=== PATIENT | male | born 1930 | race Caucasian/White ===

== ENCOUNTER 2016-07-28 21:24 | Inpatient (IN) | payer MEDICARE, OTHER ==
[~2016-07-28] VITALS: Ht 175.3 cm; Wt 87.2 kg
[2016-07-28] MEDS ORDERED: DOCU-27 PO (21:51)
[2016-07-28] MEDS ORDERED: ACET325T21 PO (21:51)
[2016-07-28] MEDS ORDERED: ACET160O49 PO (21:51)
[2016-07-28] MEDS ORDERED: TAMS0.4C2 PO (21:51)
[2016-07-28] MEDS ORDERED: FURO-69 PO (21:51)
[2016-07-28] MEDS ORDERED: PANT40TA3 PO (21:51)
[2016-07-28] MEDS ORDERED: MAGN400O4 PO (21:51)
[2016-07-28] MEDS ORDERED: ACET650S11 RC (21:51)
[2016-07-28] MEDS ORDERED: FLUT16SP NS (21:51)
[2016-07-28] MEDS ORDERED: VENL25TA PO (21:51)
[2016-07-28] MEDS ORDERED: CARV6.252 PO (21:51)
[2016-07-28] MEDS ORDERED: MAG360OR24 PO (21:52)
[2016-07-28] MEDS ORDERED: ALBU6.7H IH (21:55)
[2016-07-28] MEDS ORDERED: NA P RC (21:56)
[2016-07-28] MEDS ORDERED: EUCA50OI2 TP (21:58)
[2016-07-28] MEDS ORDERED: MINE454C6 TP (22:00)
[2016-07-28] MEDS ORDERED: CLOB15CR TP (22:03)
[2016-07-28] MEDS ORDERED: TRIA15CR2 TP (22:03)
[2016-07-28] MEDS ORDERED: DEXT15DR5 LEFTEYE (22:05)
--- NOTE | 2016-07-28 22:05 | PDOC ---
Exam Mando Demential Exam: Mando Note: Please also refer to the separate dictated note~for this date of service dictated separately.~Patient seen individually. Discussed the patient with Nursing staff reviewed the chart.~Reviewed interim history and current functioning. Reviewed vital signs,~Labs/ Radiology~and current medications noted below. Continue current treatment with the changes noted in the dictated addendum note Current Medications: Meds: Active Scripts Active Reported Triamcinolone Acetonide 15 Gm Cream..g. 1 Lyudmila TP BID Clobetasol Propionate 15 Gm Cream..g. 1 Lyudmila TP BID Hydrocerin Cream (Mineral Oil/Petrolatum,White) 454 Gm Cream..g. 1 Lyudmila TP QHS Vicks Vaporub Ointment (Eucalyptus Oil/Menthol/Camphor) 50 Gm Oint...g. 1 Lyudmila TP PRN PRN Ra Saline Enema (Na Phos,M-B/Na Phos,Di-Ba) 133 Ml Enema 133 Ml RC PRN Q24HRS PRN Proventil Hfa Inhaler (Albuterol Sulfate) 6.7 Gm Hfa.aer.ad 1 Puff IH PRN Q4HRS PRN Alum-Mag Hydroxide-Simeth Liq (Mag Hydrox/Al Hydrox/Simeth) 360 Ml Oral.susp 30 Ml PO PRN Q2HR PRN Milk Of Magnesia (Magnesium Hydroxide) 400 Mg/5 Ml Oral.susp 2,400 Mg PO PRN QHS PRN Fluticasone Propionate Nasal [place] (Fluticasone Propionate) 16 Gm [place].susp 2 [place] NS PRN DAILY PRN Colace (Docusate Sodium) 100 Mg Capsule 100 Mg PO PRN DAILY PRN Acetaminophen 325 Mg Tablet 650 Mg PO PRN Q4HRS PRN Acetaminophen Supp (Acetaminophen) 650 Mg Supp.rect 650 Mg RC PRN Q4HRS PRN Acetaminophen 160 Mg/5 Ml Oral.susp 650 Mg PO PRN Q4HRS PRN Tamsulosin Hcl 0.4 Mg Cap.er.24h 0.4 Mg PO BID Carvedilol 6.25 Mg Tablet 6.25 Mg PO BIDWMEALS Venlafaxine Hcl 25 Mg Tablet 25 Mg PO DAILY Protonix (Pantoprazole Sodium) 40 Mg Tablet.dr 40 Mg PO DAILY Lasix (Furosemide) 20 Mg Tablet 20 Mg PO DAILY SHANNON SIMMONS MD Jul 28, 2016 22:05
[2016-07-28] MEDS ORDERED: MICO90PO TP (22:06)
[2016-07-28] MEDS ORDERED: ACETAMINOPHEN 325 MG TABLET PO PRN (22:45)
[2016-07-28] MEDS ORDERED: METHYL SALICYLATE/MENTHOL TOPICAL OINTMENT 29GM TUBE. TP PRN (22:45)
[2016-07-28] MEDS ORDERED: MAG HYDROX/AL HYDROX/SIMETH 30 ML ORAL.SUSP PO PRN (22:45)
[2016-07-28] MEDS ORDERED: FLUTICASONE 50MCG/NASAL SPRAY 16GM BOTTLE. NS PRN (22:45)
[2016-07-28] MEDS ORDERED: OLANZAPINE ZYDIS 5 MG TAB.RAPDIS PO PRN (22:45)
[2016-07-28] MEDS ORDERED: MAGNESIUM HYDROXIDE 2,400 MG/30 ML ORAL.SUSP. PO PRN (22:45)
[2016-07-28 23:03] VITALS: BP 160/78
[2016-07-29 03:27] LABS: BILIRUBIN,URINE NEG (NEG); CLARITY,URINE CLEAR; COLOR,URINE YELLOW; GLUCOSE,URINE NEG (NEG); NITRITE,URINE NEG (NEG); UROBILINOGEN,URINE 0.2 mg/dL (0.2 mg/dL)
[2016-07-29 03:31] LABS: BACTERIA,URINE 0 /HPF (0-FEW); RBC,URINE 0 /HPF (0-2); WBC,URINE 0 /HPF (0-4)
[2016-07-29 06:00] VITALS: BP 160/85
[2016-07-29] MEDS ORDERED: EUCALYPTUS OIL TP PRN (06:30)
[2016-07-29] MEDS ORDERED: NON FORMULARY ITEM (Acetaminophen 650 MG) PO PRN (06:30)
[2016-07-29] MEDS ORDERED: ACETAMINOPHEN 650 MG SUPP.RECT. RC PRN (06:30)
[2016-07-29] MEDS ORDERED: DOCUSATE SODIUM 100 MG CAPSULE PO PRN (06:30)
[2016-07-29] MEDS ORDERED: MAGNESIUM HYDROXIDE 2,400 MG/30 ML ORAL.SUSP. PO PRN (06:30)
[2016-07-29] MEDS ORDERED: ACETAMINOPHEN 325 MG TABLET PO PRN (06:30)
[2016-07-29] MEDS ORDERED: CAMPHOR TP PRN (06:30)
[2016-07-29] MEDS ORDERED: ALBUTEROL SULFATE 8GM INHALER. IH PRN (06:30)
[2016-07-29] MEDS ORDERED: POLYVINYL ALCOHOL 1.4% OPHTH SOLUTION 15ML BOTTLE. OU PRN (06:30)
[2016-07-29] MEDS ORDERED: MENTHOL TP PRN (06:30)
[2016-07-29] MEDS ORDERED: MICONAZOLE NITRATE 2% TOPICAL POWDER 85GM JAR. TP PRN (06:30)
[2016-07-29 07:13] LABS: BASO # 0.1 x10^3/uL (0.0-0.2); BASO % 1 % (0-3); EOS # 0.3 x10^3/uL (0.0-0.7); EOS % 4 % (0-3); HEMATOCRIT 40.5 % (39.0-53.0); HEMOGLOBIN 13.4 g/dL (13.0-17.5); LYMPH # 1.1 x10^3/uL (1.0-4.8); LYMPH % 17 % (24-48); MEAN CORPUSCULAR HEMOGLOBIN 29 pg (25-35); MEAN CORPUSCULAR HGB CONC 33 g/dL (31-37); MEAN CORPUSCULAR VOLUME 88 fL (79-100); MONO # 0.6 x10^3/uL (0.0-1.1); MONO % 9 % (0-9); NEUT # 4.8 x10^3uL (1.8-7.7); NEUT % 70 % (31-73); PLATELET COUNT 131 x10^3/uL (140-400); RED BLOOD COUNT 4.59 x10^6/uL (4.30-5.70); RED CELL DISTRIBUTION WIDTH 14.7 % (11.5-14.5); WHITE BLOOD COUNT 6.9 x10^3/uL (4.0-11.0)
[2016-07-29] MEDS ORDERED: IPRATRPIUM/ALBUTEROL 0.5/2.5MG 3 ML NEBU. NEB PRN (07:30)
[2016-07-29 07:43] LABS: ALBUMIN 3.3 g/dL (3.4-5.0); ALBUMIN/GLOBULIN RATIO 0.8 (1.0-1.7); CALCIUM 8.9 mg/dL (8.5-10.1); CREATININE 1.7 mg/dL (0.7-1.3); GFR 38.4; TOTAL BILIRUBIN 0.3 mg/dL (0.2-1.0); TOTAL PROTEIN 7.2 g/dL (6.4-8.2)
[2016-07-29] MEDS ORDERED: CARVEDILOL 6.25 MG TABLET PO SCH (08:00)
[2016-07-29] MEDS: PANTOPRAZOLE 40 MG TABLET. PO SCH (08:31)
[2016-07-29] MEDS: CLOBETASOL 0.05% TP SCH ×2 (08:31→21:00)
[2016-07-29] MEDS: FUROSEMIDE 20 MG TABLET PO SCH (08:31)
[2016-07-29] MEDS: TAMSULOSIN 0.4 MG CAP.ER.24H. PO SCH ×2 (08:31→19:07)
[2016-07-29] MEDS ORDERED: VENLAFAXINE 50 MG TABLET. PO SCH (09:00)
[2016-07-29 09:57] LABS: IRON,SERUM 45 ug/dL (65-175)
[2016-07-29 09:58] LABS: THYROID STIM HORMONE (TSH) 4.644 uIU/mL (0.358-3.740)
[2016-07-29] MEDS: PRENATAL MULTIVITAMIN TABLET. PO SCH (11:51)
--- NOTE | 2016-07-29 12:16 | HP ---
ADMIT DATE: 07/29/2016 REASON FOR ADMISSION TO THE SENIOR BEHAVIORAL UNIT: This is an 85-year-old male, who came to the [facility] Emergency Room via [facility] [place]. The patient has been having problems at the nursing facility. The patient's in March and as of late the patient still desires to have sexual relations. There is no one that he has a relationship with however. He was on Effexor 25 twice a day and noted that he was unable to have an erection and this was discontinued and the patient developed severe depression. He was restarted on 50 mg a day from the b.i.d. dosing and had some improvement in his intractable crying, but started to lash out with staff members more with paranoia. There was a long note from 07/28/2016, where he has been threatening residents and staff. He particularly picks on one person at the unit. He also has proposition to the staff, not to have intercourse, but to with him and hug them etc. Feel appears that he is having some significant post- grief of his , which is understandable. PAST MEDICAL HISTORY: Hypertension, chronic kidney disease. He has a remote history of a DVT. Fasting glucose, aortic aneurysm, lower extremity edema, and blindness of the left eye. 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 Factor V Leiden deficiency, factor 8 deficiency, insomnia, psoriasis, adjustment disorder, and history of pulmonary embolism. PAST SURGICAL HISTORY: He had an appendectomy as he had acute appendicitis in 10/2015. MEDICATIONS: Reviewed and are available on the MAR. ALLERGIES: None. SOCIAL HISTORY: As stated, his in March. He has children, who involved in his care. 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 He is a of the [place] , although he was in the [facility] and not in the [employer]. He quit smoking in 1980. REVIEW OF SYSTEMS: The patient has no particular complaints. OBJECTIVE: VITAL SIGNS: Blood pressure 160/85, pulse 78, temperature 97.4, and pulse ox is 95% on room air. Height 69 inches, weight 192.5 pounds. GENERAL: Pleasant elderly 85-year-old, in no acute distress. HEENT: The right pupil is equal, round, and reactive to light. Extraocular muscles are intact. He has a left artificial eye. His hearing is intact. His nose was patent. His throat was clear. NECK: Supple, without adenopathy. LUNGS: Clear to auscultation. CARDIOVASCULAR: Regular rhythm and rate. ABDOMEN: Protuberant, nontender, no masses. EXTREMITIES: With a trace of edema with ANTIONETTE hose on. MUSCULOSKELETAL: His gait, he ambulates very well with a walker and he passes to get up and go test. NEUROLOGIC: No tremors noted and cranial nerves are intact except with relation to the left eye. MENTAL STATUS: The patient was calm and cooperative, but is somewhat paranoid. He understands why he is at the hospital. He feels that he has been misunderstood and there is some untruths. LABORATORY DATA: Platelet count 131,000. Chemistry: BUN 27, creatinine 1.7. TSH is 4.644, and iron is slightly low at 45. ASSESSMENT: 1. Neurocognitive impairment. 2. Purported sexual inappropriateness. 3. Recent loss of . 4. Grief reaction. 5. 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 6. Fall risk. 7. Hypertension. 8. Adjustment disorder. 9. Major depressive disorder. 10. Factor violation. 11. History of pulmonary embolism. 12. Iron deficiency. 13. Mild thrombocytopenia. We will monitor. PLAN: To treat his medical conditions and follow along with Dr. Morrison. Also, he had a CT of the head, which was negative. CT of the head on 07/28/2016. GRAY ZAPATA DO DR: KYAW/maciej JOB#: [id number] / [id number]
[2016-07-29 13:07] LABS: T3 TOTAL 87 ng/dL (71-180); THYROXINE 7.2 ug/dL (4.5-12.0)
[2016-07-29 15:59] VITALS: BP 151/76
[2016-07-29] MEDS: CARVEDILOL 6.25 MG TABLET PO SCH (20:02)
--- NOTE | 2016-07-29 21:06 | PDOC ---
Exam Mando Demential Exam: Mando Note: Please also refer to the separate dictated note~for this date of service dictated separately.~Patient seen individually. Discussed the patient with Nursing staff reviewed the chart.~Reviewed interim history and current functioning. Reviewed vital signs,~Labs/ Radiology~and current medications noted below. Continue current treatment with the changes noted in the dictated addendum note Assessment: Vital Signs: Vital Signs Date Time Temp Pulse Resp B/P Pulse Ox O2 Delivery O2 Flow Rate FiO2 07/29/16 20:02 70 147/85 07/29/16 15:59 97.5 24 96 Room Air I&O Intake and Output 07/29/16 07:00 Intake Total 0 ml Balance 0 ml Intake Oral 0 ml Labs: Laboratory Tests Test 07/29/16 03:00 07/29/16 06:51 Urine Collection Type Void Urine Color Yellow Urine Clarity Clear Urine pH 6.0 Urine Specific [place] 1.020 Urine Protein Neg (NEG-TRACE) Urine Glucose (UA) Negmg/dL (NEG) Urine Ketones (Stick) Negmg/dL (NEG) Urine Blood Neg (NEG) Urine Nitrite Neg (NEG) Urine Bilirubin Neg (NEG) Urine Urobilinogen Dipstick 0.2mg/dL (0.2 mg/dL) Urine Leukocyte Esterase Neg (NEG) Urine RBC 0/HPF (0-2) Urine WBC 0/HPF (0-4) Urine Squamous Epithelial Cells None/LPF Urine Bacteria 0/HPF (0-FEW) White Blood Count 6.9x10^3/uL (4.0-11.0) Red Blood Count 4.59x10^6/uL (4.30-5.70) Hemoglobin 13.4g/dL (13.0-17.5) Hematocrit 40.5% (39.0-53.0) Mean Corpuscular Volume 88fL (79-100) Mean Corpuscular Hemoglobin 29pg (25-35) Mean Corpuscular Hemoglobin Concent 33g/dL (31-37) Red Cell Distribution Width 14.7% (11.5-14.5) H Platelet Count 131x10^3/uL (140-400) L Neutrophils (%) (Auto) 70% (31-73) Lymphocytes (%) (Auto) 17% (24-48) L Monocytes (%) (Auto) 9% (0-9) Eosinophils (%) (Auto) 4% (0-3) H Basophils (%) (Auto) 1% (0-3) Neutrophils # (Auto) 4.8x10^3uL (1.8-7.7) Lymphocytes # (Auto) 1.1x10^3/uL (1.0-4.8) Monocytes # (Auto) 0.6x10^3/uL (0.0-1.1) Eosinophils # (Auto) 0.3x10^3/uL (0.0-0.7) Basophils # (Auto) 0.1x10^3/uL (0.0-0.2) Sodium Level 143mmol/L (136-145) Potassium Level 4.0mmol/L (3.5-5.1) Chloride Level 108mmol/L (98-107) H Carbon Dioxide Level 29mmol/L (21-32) Anion Gap 6 (6-14) Blood Urea Nitrogen 27mg/dL (8-26) H Creatinine 1.7mg/dL (0.7-1.3) H Estimated GFR (Cockcroft-Gault) 38.4 BUN/Creatinine Ratio 16 (6-20) Glucose Level 141mg/dL (70-99) H Calcium Level 8.9mg/dL (8.5-10.1) Magnesium Level 2.0mg/dL (1.8-2.4) Iron Level 45ug/dL (65-175) L Total Iron Binding Capacity 299ug/dL (250-450) Iron Saturation 15% (15-34) Total Bilirubin 0.3mg/dL (0.2-1.0) Aspartate Amino Transferase (AST) 12U/L (15-37) L Alanine Aminotransferase (ALT) 17U/L (16-63) Alkaline Phosphatase 76U/L (46-116) Total Protein 7.2g/dL (6.4-8.2) Albumin 3.3g/dL (3.4-5.0) L Albumin/Globulin Ratio 0.8 (1.0-1.7) L Triglycerides Level 68mg/dL (0-150) Cholesterol Level 191mg/dL (0-200) LDL Cholesterol, Calculated 129mg/dL (0-100) H VLDL Cholesterol, Calculated 13mg/dL (0-40) HDL Cholesterol 49mg/dL (40-60) Cholesterol/HDL Ratio 3.0 25-Hydroxy Vitamin D Total Pending Thyroid Stimulating Hormone (TSH) 4.644uIU/mL (0.358-3.740) Thyroxine (T4) 7.2ug/dL (4.5-12.0) Total Triiodothyronine (TT3) 87ng/dL (71-180) RPR Titer Additional Testing Pending Current Medications: Meds: Current Medications Acetaminophen (Tylenol) 650 mg PRN Q6HRS PRN PO PAIN / TEMP; Start 07/28/16 at 22:45; Stop 07/29/16 at 06:32; Status DC Multi-Ingredient Ointment (Analgesic [place]) 1 lyudmila PRN QID PRN TP MUSCLE PAIN; Start 07/28/16 at 22:45 Al Hydroxide/Mg Hydroxide (Mylanta Plus Xs) 15 ml PRN AFTMEALHC PRN PO DYSPEPSIA; Start 07/28/16 at 22:45; Stop 07/29/16 at 06:32; Status DC Magnesium Hydroxide (Milk Of Magnesia) 2,400 mg PRN QHS PRN PO CONSTIPATION; Start 07/28/16 at 22:45; Stop 07/29/16 at 06:32; Status DC Venlafaxine HCl (Effexor) 25 mg DAILY PO Depression Last administered on t 08:31; Start 07/29/16 at 09:00; Stop 07/29/16 at 18:31; Status DC Fluticasone Propionate (Flonase) 2 spray PRN DAILY PRN NS Nasal Congestion; Start 07/28/16 at 22:45 Olanzapine (Zyprexa Zydis) 1.25 mg PRN Q2HR PRN PO Psych; Start 07/28/16 at 22: 45 Acetaminophen (Tylenol) 650 mg PRN Q4HRS PRN PO PAIN / TEMP; Start 07/29/16 at 06:30 Acetaminophen (Tylenol) 650 mg PRN Q4HRS PRN RC PAIN / TEMP; Start 07/29/16 at 06:30 Albuterol Sulfate (Ventolin Hfa) 1 puff PRN Q4HRS PRN IH Dyspnea; Start at 06:30; Stop 07/29/16 at 07:22; Status DC Carvedilol (Coreg) 6.25 mg BIDWMEALS PO Last administered on 07/29/16 08:31; Start 07/29/16 at 08:00; Stop 07/29/16 at 10:49; Status DC Clobetasol Propionate (Temovate) 1 lyudmila BID TP Last administered on 07/29/16 08: 31; Start 07/29/16 at 09:00 Docusate Sodium (Colace) 100 mg PRN DAILY PRN PO CONSTIPATION; Start 07/29/16 at 06:30 Furosemide (Lasix) 20 mg DAILY PO Last administered on 07/29/16 08:31; Start at 09:00 Magnesium Hydroxide (Milk Of Magnesia) 2,400 mg PRN QHS PRN PO CONSTIPATION; Start 07/29/16 at 06:30 Miconazole Nitrate (Desenex) 1 lyudmila PRN DAILY PRN TP ITCHING; Start 07/29/16 at 06:30; Stop 07/29/16 at 07:20; Status DC Multi-Ingred Cream/Lotion/Oil/ Oint (Hydrocerin) 1 lyudmila QHS TP ; Start 07/29/16 at 21:00 Pantoprazole Sodium (Protonix) 40 mg DAILYAC PO Last administered on 07/29/16 08:31; Start 07/29/16 at 07:30 Tamsulosin HCl (Flomax) 0.4 mg BID PO Last administered on 07/29/16 19:07; Start 07/29/16 at 09:00 Non-Formulary Medication 650 mg PRN Q4HRS PRN PO PAIN / TEMP; Start 07/29/16 at 06:30; Status UNV Artificial Tears (Artificial Tears) 2 drop PRN Q2HR PRN OU Artificial Eye Dryness; Start 07/29/16 at 06:30 Non-Formulary Medication 1 lyudmila PRN PRN TP CONGESTION; Start 07/29/16 at 06:30; Stop 07/29/16 at 07:24; Status DC Miconazole Nitrate (Monistat-Derm) 1 lyudmila PRN DAILY PRN TP ITCHING; Start at 07:30 Albuterol/ Ipratropium (Duoneb) 3 ml PRN Q4HRS PRN NEB SHORTNESS OF BREATH; Start 07/29/16 at 07:30 Carvedilol (Coreg) 6.25 mg Q12HR PO Last administered on 07/29/16 20:02; Start 07/29/16 at 21:00 Prenat Multivit/ Punch Operator/Iron/Folic Ac (Multivitamin ) 1 tab DAILYWLUN PO Last administered on 07/29/16 11:51; Start 07/29/16 at 12:00 Bupropion HCl (Wellbutrin Xl) 150 mg DAILY PO ; Start 07/30/16 at 09:00 Active Scripts Active Reported Lotrimin Af (Miconazole Nitrate) 90 Gm Powder 1 Lyud[place]ila TP PRN PRN Artificial Tears Eye Drops (Dextran 70/Hypromellose) 15 Ml Drops 2 Drop LEFTEYE PRN Q2HR PRN Triamcinolone Acetonide 15 Gm Cream..g. 1 Lyudmila TP BID Clobetasol Propionate 15 Gm Cream..g. 1 Lyudmila TP BID Hydrocerin Cream (Mineral Oil/Petrolatum,White) 454 Gm Cream..g. 1 Lyudmila TP QHS Vicks Vaporub Ointment (Eucalyptus Oil/Menthol/Camphor) 50 Gm Oint...g. 1 Lyudmila TP PRN PRN Ra Saline Enema (Na Phos,M-B/Na Phos,Di-Ba) 133 Ml Enema 133 Ml RC PRN Q24HRS PRN Proventil Hfa Inhaler (Albuterol Sulfate) 6.7 Gm Hfa.aer.ad 1 Puff IH PRN Q4HRS PRN Alum-Mag Hydroxide-Simeth Liq (Mag Hydrox/Al Hydrox/Simeth) 360 Ml Oral.susp 30 Ml PO PRN Q2HR PRN Milk Of Magnesia (Magnesium Hydroxide) 400 Mg/5 Ml Oral.susp 2,400 Mg PO PRN QHS PRN Fluticasone Propionate Nasal [place] (Fluticasone Propionate) 16 Gm [place].susp 2 [place] NS PRN DAILY PRN Colace (Docusate Sodium) 100 Mg Capsule 100 Mg PO PRN DAILY PRN Acetaminophen 325 Mg Tablet 650 Mg PO PRN Q4HRS PRN Acetaminophen Supp (Acetaminophen) 650 Mg Supp.rect 650 Mg RC PRN Q4HRS PRN Acetaminophen 160 Mg/5 Ml Oral.susp 650 Mg PO PRN Q4HRS PRN Tamsulosin Hcl 0.4 Mg Cap.er.24h 0.4 Mg PO BID Carvedilol 6.25 Mg Tablet 6.25 Mg PO BIDWMEALS Venlafaxine Hcl 25 Mg Tablet 25 Mg PO DAILY Protonix (Pantoprazole Sodium) 40 Mg Tablet.dr 40 Mg PO DAILY Lasix (Furosemide) 20 Mg Tablet 20 Mg PO DAILY SHANNON SIMMONS MD Jul 29, 2016 21:06
[2016-07-29] MEDS: MINERAL OIL/PETROLATUM TOPICAL CREAM 113GM JAR. TP SCH (21:10)
[2016-07-29 22:09] LABS: RPR REFLEX Non Reactive (Non Reactive)
[2016-07-30 06:01] VITALS: BP 146/76
[2016-07-30] MEDS: PANTOPRAZOLE 40 MG TABLET. PO SCH (07:53)
[2016-07-30] MEDS: TAMSULOSIN 0.4 MG CAP.ER.24H. PO SCH ×2 (07:54→19:10)
[2016-07-30] MEDS: CARVEDILOL 6.25 MG TABLET PO SCH ×2 (07:54→19:10)
[2016-07-30] MEDS: FUROSEMIDE 20 MG TABLET PO SCH (07:55)
[2016-07-30] MEDS: buPROPion XL 150 MG TAB.ER.24H PO SCH (07:59)
[2016-07-30] MEDS: CLOBETASOL 0.05% TP SCH ×2 (09:00→19:11)
[2016-07-30] MEDS: PRENATAL MULTIVITAMIN TABLET. PO SCH (11:33)
[2016-07-30 15:30] VITALS: BP 145/81
[2016-07-30] MEDS: MINERAL OIL/PETROLATUM TOPICAL CREAM 113GM JAR. TP SCH (19:09)
--- NOTE | 2016-07-30 21:03 | PDOC ---
Exam Mando Demential Exam: Mando Note: Please also refer to the separate dictated note~for this date of service dictated separately.~Patient seen individually. Discussed the patient with Nursing staff reviewed the chart.~Reviewed interim history and current functioning. Reviewed vital signs,~Labs/ Radiology~and current medications noted below. Continue current treatment with the changes noted in the dictated addendum note Assessment: Vital Signs: Vital Signs Date Time Temp Pulse Resp B/P Pulse Ox O2 Delivery O2 Flow Rate FiO2 07/30/16 19:10 73 145/81 07/30/16 15:30 97.5 18 96 Nasal Cannula 2.0 I&O Intake and Output 07/30/16 07:00 Intake Total 1080 ml Balance 1080 ml Intake Oral 1080 ml # Voids 3 Current Medications: Meds: Current Medications Acetaminophen (Tylenol) 650 mg PRN Q6HRS PRN PO PAIN / TEMP; Start 07/28/16 at 22:45; Stop 07/29/16 at 06:32; Status DC Multi-Ingredient Ointment (Analgesic [place]) 1 lyudmila PRN QID PRN TP MUSCLE PAIN; Start 07/28/16 at 22:45 Al Hydroxide/Mg Hydroxide (Mylanta Plus Xs) 15 ml PRN AFTMEALHC PRN PO DYSPEPSIA; Start 07/28/16 at 22:45; Stop 07/29/16 at 06:32; Status DC Magnesium Hydroxide (Milk Of Magnesia) 2,400 mg PRN QHS PRN PO CONSTIPATION; Start 07/28/16 at 22:45; Stop 07/29/16 at 06:32; Status DC Venlafaxine HCl (Effexor) 25 mg DAILY PO Depression Last administered on t 08:31; Start 07/29/16 at 09:00; Stop 07/29/16 at 18:31; Status DC Fluticasone Propionate (Flonase) 2 spray PRN DAILY PRN NS Nasal Congestion; Start 07/28/16 at 22:45 Olanzapine (Zyprexa Zydis) 1.25 mg PRN Q2HR PRN PO Psych; Start 07/28/16 at 22: 45 Acetaminophen (Tylenol) 650 mg PRN Q4HRS PRN PO PAIN / TEMP; Start 07/29/16 at 06:30 Acetaminophen (Tylenol) 650 mg PRN Q4HRS PRN RC PAIN / TEMP; Start 07/29/16 at 06:30 Albuterol Sulfate (Ventolin Hfa) 1 puff PRN Q4HRS PRN IH Dyspnea; Start at 06:30; Stop 07/29/16 at 07:22; Status DC Carvedilol (Coreg) 6.25 mg BIDWMEALS PO Last administered on 07/29/16 08:31; Start 07/29/16 at 08:00; Stop 07/29/16 at 10:49; Status DC Clobetasol Propionate (Temovate) 1 lyudmila BID TP Last administered on 07/30/16 19 :11; Start 07/29/16 at 09:00 Docusate Sodium (Colace) 100 mg PRN DAILY PRN PO CONSTIPATION; Start 07/29/16 at 06:30 Furosemide (Lasix) 20 mg DAILY PO Last administered on 07/30/16 07:55; Start 07/29/16 at 09:00 Magnesium Hydroxide (Milk Of Magnesia) 2,400 mg PRN QHS PRN PO CONSTIPATION; Start 07/29/16 at 06:30 Miconazole Nitrate (Desenex) 1 lyudmila PRN DAILY PRN TP ITCHING; Start 07/29/16 at 06:30; Stop 07/29/16 at 07:20; Status DC Multi-Ingred Cream/Lotion/Oil/ Oint (Hydrocerin) 1 lyudmila QHS TP Last administered on 07/30/16 19:09; Start 07/29/16 at 21:00 Pantoprazole Sodium (Protonix) 40 mg DAILYAC PO Last administered on 07/30/16 07:53; Start 07/29/16 at 07:30 Tamsulosin HCl (Flomax) 0.4 mg BID PO Last administered on 07/30/16 19:10; Start 07/29/16 at 09:00 Non-Formulary Medication 650 mg PRN Q4HRS PRN PO PAIN / TEMP; Start 07/29/16 at 06:30; Status UNV Artificial Tears (Artificial Tears) 2 drop PRN Q2HR PRN OU Artificial Eye Dryness; Start 07/29/16 at 06:30 Non-Formulary Medication 1 lyudmila PRN PRN TP CONGESTION; Start 07/29/16 at 06:30; Stop 07/29/16 at 07:24; Status DC Miconazole Nitrate (Monistat-Derm) 1 lyudmila PRN DAILY PRN TP ITCHING; Start at 07:30 Albuterol/ Ipratropium (Duoneb) 3 ml PRN Q4HRS PRN NEB SHORTNESS OF BREATH; Start 07/29/16 at 07:30 Carvedilol (Coreg) 6.25 mg Q12HR PO Last administered on 07/30/16 19:10; Start 07/29/16 at 21:00 Prenat Multivit/ Regular Senior Care Provider/Iron/Folic Ac (Multivitamin ) 1 tab DAILYWLUN PO Last administered on 07/30/16 11:33; Start 07/29/16 at 12:00 Bupropion HCl (Wellbutrin Xl) 150 mg DAILY PO Last administered on 07/30/16 07 :59; Start 07/30/16 at 09:00 Active Scripts Active Reported Lotrimin Af (Miconazole Nitrate) 90 Gm Powder 1 [place] TP PRN PRN Artificial Tears Eye Drops (Dextran 70/Hypromellose) 15 Ml Drops 2 Drop LEFTEYE PRN Q2HR PRN Triamcinolone Acetonide 15 Gm Cream..g. 1 Lyudmila TP BID Clobetasol Propionate 15 Gm Cream..g. 1 Lyudmila TP BID Hydrocerin Cream (Mineral Oil/Petrolatum,White) 454 Gm Cream..g. 1 Lyudmila TP QHS Vicks Vaporub Ointment (Eucalyptus Oil/Menthol/Camphor) 50 Gm Oint...g. 1 Lyudmila TP PRN PRN Ra Saline Enema (Na Phos,M-B/Na Phos,Di-Ba) 133 Ml Enema 133 Ml RC PRN Q24HRS PRN Proventil Hfa Inhaler (Albuterol Sulfate) 6.7 Gm Hfa.aer.ad 1 Puff IH PRN Q4HRS PRN Alum-Mag Hydroxide-Simeth Liq (Mag Hydrox/Al Hydrox/Simeth) 360 Ml Oral.susp 30 Ml PO PRN Q2HR PRN Milk Of Magnesia (Magnesium Hydroxide) 400 Mg/5 Ml Oral.susp 2,400 Mg PO PRN QHS PRN Fluticasone Propionate Nasal [place] (Fluticasone Propionate) 16 Gm [place].susp 2 [place] NS PRN DAILY PRN Colace (Docusate Sodium) 100 Mg Capsule 100 Mg PO PRN DAILY PRN Acetaminophen 325 Mg Tablet 650 Mg PO PRN Q4HRS PRN Acetaminophen Supp (Acetaminophen) 650 Mg Supp.rect 650 Mg RC PRN Q4HRS PRN Acetaminophen 160 Mg/5 Ml Oral.susp 650 Mg PO PRN Q4HRS PRN Tamsulosin Hcl 0.4 Mg Cap.er.24h 0.4 Mg PO BID Carvedilol 6.25 Mg Tablet 6.25 Mg PO BIDWMEALS Venlafaxine Hcl 25 Mg Tablet 25 Mg PO DAILY Protonix (Pantoprazole Sodium) 40 Mg Tablet.dr 40 Mg PO DAILY Lasix (Furosemide) 20 Mg Tablet 20 Mg PO DAILY SHANNON SIMMONS MD Jul 30, 2016 21:03
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
[2016-07-31 01:07] LABS: VITAMIN D25(OH)TOTAL 26.1 ng/mL (30.0-100.0)
[2016-07-31 06:21] VITALS: BP 120/57
[2016-07-31 07:12] LABS: HEMOGLOBIN A1C 5.6 % (4.8-5.6)
[2016-07-31] MEDS: PANTOPRAZOLE 40 MG TABLET. PO SCH (07:35)
[2016-07-31] MEDS: CARVEDILOL 6.25 MG TABLET PO SCH ×2 (07:35→19:33)
[2016-07-31] MEDS: buPROPion XL 150 MG TAB.ER.24H PO SCH (07:36)
[2016-07-31] MEDS: FUROSEMIDE 20 MG TABLET PO SCH (07:36)
[2016-07-31] MEDS: TAMSULOSIN 0.4 MG CAP.ER.24H. PO SCH ×2 (07:36→19:33)
[2016-07-31] MEDS: CLOBETASOL 0.05% TP SCH ×2 (07:37→19:34)
[2016-07-31] MEDS: PRENATAL MULTIVITAMIN TABLET. PO SCH (11:31)
[2016-07-31 15:45] VITALS: BP 134/72
[2016-07-31] MEDS: MINERAL OIL/PETROLATUM TOPICAL CREAM 113GM JAR. TP SCH (19:34)
--- NOTE | 2016-07-31 21:05 | PDOC ---
Exam Mando Demential Exam: Mando Note: Please also refer to the separate dictated note~for this date of service dictated separately.~Patient seen individually. Discussed the patient with Nursing staff reviewed the chart.~Reviewed interim history and current functioning. Reviewed vital signs,~Labs/ Radiology~and current medications noted below. Continue current treatment with the changes noted in the dictated addendum note Assessment: Vital Signs: Vital Signs Date Time Temp Pulse Resp B/P Pulse Ox O2 Delivery O2 Flow Rate FiO2 07/31/16 19:33 69 134/72 07/31/16 15:45 97.2 18 97 07/31/16 06:21 Room Air 07/30/16 15:30 2.0 I&O Intake and Output 07/31/16 07:00 Intake Total 1440 ml Balance 1440 ml Intake Oral 1440 ml Current Medications: Meds: Current Medications Acetaminophen (Tylenol) 650 mg PRN Q6HRS PRN PO PAIN / TEMP; Start 07/28/16 at 22:45; Stop 07/29/16 at 06:32; Status DC Multi-Ingredient Ointment (Analgesic [place]) 1 lyudmila PRN QID PRN TP MUSCLE PAIN; Start 07/28/16 at 22:45 Al Hydroxide/Mg Hydroxide (Mylanta Plus Xs) 15 ml PRN AFTMEALHC PRN PO DYSPEPSIA; Start 07/28/16 at 22:45; Stop 07/29/16 at 06:32; Status DC Magnesium Hydroxide (Milk Of Magnesia) 2,400 mg PRN QHS PRN PO CONSTIPATION; Start 07/28/16 at 22:45; Stop 07/29/16 at 06:32; Status DC Venlafaxine HCl (Effexor) 25 mg DAILY PO Depression Last administered on t 08:31; Start 07/29/16 at 09:00; Stop 07/29/16 at 18:31; Status DC Fluticasone Propionate (Flonase) 2 spray PRN DAILY PRN NS Nasal Congestion; Start 07/28/16 at 22:45 Olanzapine (Zyprexa Zydis) 1.25 mg PRN Q2HR PRN PO Psych; Start 07/28/16 at 22: 45 Acetaminophen (Tylenol) 650 mg PRN Q4HRS PRN PO PAIN / TEMP; Start 07/29/16 at 06:30 Acetaminophen (Tylenol) 650 mg PRN Q4HRS PRN RC PAIN / TEMP; Start 07/29/16 at 06:30 Albuterol Sulfate (Ventolin Hfa) 1 puff PRN Q4HRS PRN IH Dyspnea; Start at 06:30; Stop 07/29/16 at 07:22; Status DC Carvedilol (Coreg) 6.25 mg BIDWMEALS PO Last administered on 07/29/16 08:31; Start 07/29/16 at 08:00; Stop 07/29/16 at 10:49; Status DC Clobetasol Propionate (Temovate) 1 lyudmila BID TP Last administered on 07/31/16 19 :34; Start 07/29/16 at 09:00 Docusate Sodium (Colace) 100 mg PRN DAILY PRN PO CONSTIPATION; Start 07/29/16 at 06:30 Furosemide (Lasix) 20 mg DAILY PO Last administered on 07/31/16 07:36; Start 07/29/16 at 09:00 Magnesium Hydroxide (Milk Of Magnesia) 2,400 mg PRN QHS PRN PO CONSTIPATION; Start 07/29/16 at 06:30 Miconazole Nitrate (Desenex) 1 lyudmila PRN DAILY PRN TP ITCHING; Start 07/29/16 at 06:30; Stop 07/29/16 at 07:20; Status DC Multi-Ingred Cream/Lotion/Oil/ Oint (Hydrocerin) 1 lyudmila QHS TP Last administered on 07/31/16 19:34; Start 07/29/16 at 21:00 Pantoprazole Sodium (Protonix) 40 mg DAILYAC PO Last administered on 07/31/16 07:35; Start 07/29/16 at 07:30 Tamsulosin HCl (Flomax) 0.4 mg BID PO Last administered on 07/31/16 19:33; Start 07/29/16 at 09:00 Non-Formulary Medication 650 mg PRN Q4HRS PRN PO PAIN / TEMP; Start 07/29/16 at 06:30; Status UNV Artificial Tears (Artificial Tears) 2 drop PRN Q2HR PRN OU Artificial Eye Dryness; Start 07/29/16 at 06:30 Non-Formulary Medication 1 lyudmila PRN PRN TP CONGESTION; Start 07/29/16 at 06:30; Stop 07/29/16 at 07:24; Status DC Miconazole Nitrate (Monistat-Derm) 1 lyudmila PRN DAILY PRN TP ITCHING; Start at 07:30 Albuterol/ Ipratropium (Duoneb) 3 ml PRN Q4HRS PRN NEB SHORTNESS OF BREATH; Start 07/29/16 at 07:30 Carvedilol (Coreg) 6.25 mg Q12HR PO Last administered on 07/31/16 19:33; Start 07/29/16 at 21:00 Prenat Multivit/ [place]/Iron/Folic Ac (Multivitamin ) 1 tab DAILYWLUN PO Last administered on 07/31/16 11:31; Start 07/29/16 at 12:00 Bupropion HCl (Wellbutrin Xl) 150 mg DAILY PO Last administered on 07/31/16 07 :36; Start 07/30/16 at 09:00 Active Scripts Active Reported Lotrimin Af (Miconazole Nitrate) 90 Gm Powder 1 Lyudmila TP PRN PRN Artificial Tears Eye Drops (Dextran 70/Hypromellose) 15 Ml Drops 2 Drop LEFTEYE PRN Q2HR PRN Triamcinolone Acetonide 15 Gm Cream..g. 1 Lyudmila TP BID Clobetasol Propionate 15 Gm Cream..g. 1 Lyudmila TP BID Hydrocerin Cream (Mineral Oil/Petrolatum,White) 454 Gm Cream..g. 1 Lyudmila TP QHS Vicks Vaporub Ointment (Eucalyptus Oil/Menthol/Camphor) 50 Gm Oint...g. 1 Lyudmila TP PRN PRN Ra Saline Enema (Na Phos,M-B/Na Phos,Di-Ba) 133 Ml Enema 133 Ml RC PRN Q24HRS PRN Proventil Hfa Inhaler (Albuterol Sulfate) 6.7 Gm Hfa.aer.ad 1 Puff IH PRN Q4HRS PRN Alum-Mag Hydroxide-Simeth Liq (Mag Hydrox/Al Hydrox/Simeth) 360 Ml Oral.susp 30 Ml PO PRN Q2HR PRN Milk Of Magnesia (Magnesium Hydroxide) 400 Mg/5 Ml Oral.susp 2,400 Mg PO PRN QHS PRN Fluticasone Propionate Nasal [place] (Fluticasone Propionate) 16 Gm [place].susp 2 [place] NS PRN DAILY PRN Colace (Docusate Sodium) 100 Mg Capsule 100 Mg PO PRN DAILY PRN Acetaminophen 325 Mg Tablet 650 Mg PO PRN Q4HRS PRN Acetaminophen Supp (Acetaminophen) 650 Mg Supp.rect 650 Mg RC PRN Q4HRS PRN Acetaminophen 160 Mg/5 Ml Oral.susp 650 Mg PO PRN Q4HRS PRN Tamsulosin Hcl 0.4 Mg Cap.er.24h 0.4 Mg PO BID Carvedilol 6.25 Mg Tablet 6.25 Mg PO BIDWMEALS Venlafaxine Hcl 25 Mg Tablet 25 Mg PO DAILY Protonix (Pantoprazole Sodium) 40 Mg Tablet.dr 40 Mg PO DAILY Lasix (Furosemide) 20 Mg Tablet 20 Mg PO DAILY SHANNON SIMMONS MD Jul 31, 2016 21:04
--- NOTE | 2016-08-01 04:30 | PN ---
DATE: 07/30/2016 This late entry for 07/30/2016 covers elements not covered in my initial note. SUBJECTIVE: Per nursing report, the patient has been walking on his own, quite interactive, still depressed. No sexual aggression noted. Slept 7-1/2 hours. REVIEW OF SYSTEMS: No CV, , pulmonary, eye, ENT system symptoms on review. MENTAL STATUS EXAMINATION: Reasonably oriented. Speech has some latency, low in volume, coherent, abstraction fair, computation impaired. Language function intact. Mood and affect still somewhat dysphoric, withdrawn at times. No active suicidal or homicidal ideation. LABORATORY DATA: Reviewed. ASSESSMENT: Major depressive disorder, recurrent, rule out psychotic features; anxiety disorder, unspecified; impulse control disorder, unspecified. PLAN: The patient has been started on Wellbutrin-XL 150 mg a day for his depression in place of the Effexor. Maintain the rest of the psychotropics and adjust as indicated. SHANNON SIMMONS MD DR: MERCEDES/maciej JOB#: [id number] / [id number]
[2016-08-01 05:16] VITALS: BP 142/78
[2016-08-01] MEDS: FUROSEMIDE 20 MG TABLET PO SCH (08:20)
[2016-08-01] MEDS: PANTOPRAZOLE 40 MG TABLET. PO SCH (08:20)
[2016-08-01] MEDS: CARVEDILOL 6.25 MG TABLET PO SCH ×2 (08:20→19:20)
[2016-08-01] MEDS: TAMSULOSIN 0.4 MG CAP.ER.24H. PO SCH ×2 (08:21→19:19)
[2016-08-01] MEDS: buPROPion XL 150 MG TAB.ER.24H PO SCH (08:21)
[2016-08-01] MEDS: CLOBETASOL 0.05% TP SCH ×2 (08:22→19:20)
[2016-08-01] MEDS: PRENATAL MULTIVITAMIN TABLET. PO SCH (11:59)
[2016-08-01 15:41] VITALS: BP 129/70
[2016-08-01] MEDS: MINERAL OIL/PETROLATUM TOPICAL CREAM 113GM JAR. TP SCH (19:20)
--- NOTE | 2016-08-01 21:08 | PDOC ---
Exam Mando Demential Exam: Mando Note: Please also refer to the separate dictated note~for this date of service dictated separately.~Patient seen individually. Discussed the patient with Nursing staff reviewed the chart.~Reviewed interim history and current functioning. Reviewed vital signs,~Labs/ Radiology~and current medications noted below. Continue current treatment with the changes noted in the dictated addendum note Assessment: Vital Signs: Vital Signs Date Time Temp Pulse Resp B/P Pulse Ox O2 Delivery O2 Flow Rate FiO2 08/01/16 19:20 81 129/70 08/01/16 15:41 98.0 93 08/01/16 05:16 18 07/31/16 06:21 Room Air 07/30/16 15:30 2.0 I&O Intake and Output 08/01/16 07:00 Intake Total 1420 ml Balance 1420 ml Intake Oral 1420 ml # Voids 3 # Bowel Movements 1 Current Medications: Meds: Current Medications Acetaminophen (Tylenol) 650 mg PRN Q6HRS PRN PO PAIN / TEMP; Start 07/28/16 at 22:45; Stop 07/29/16 at 06:32; Status DC Multi-Ingredient Ointment (Analgesic [place]) 1 lyudmila PRN QID PRN TP MUSCLE PAIN; Start 07/28/16 at 22:45 Al Hydroxide/Mg Hydroxide (Mylanta Plus Xs) 15 ml PRN AFTMEALHC PRN PO DYSPEPSIA; Start 07/28/16 at 22:45; Stop 07/29/16 at 06:32; Status DC Magnesium Hydroxide (Milk Of Magnesia) 2,400 mg PRN QHS PRN PO CONSTIPATION; Start 07/28/16 at 22:45; Stop 07/29/16 at 06:32; Status DC Venlafaxine HCl (Effexor) 25 mg DAILY PO Depression Last administered on t 08:31; Start 07/29/16 at 09:00; Stop 07/29/16 at 18:31; Status DC Fluticasone Propionate (Flonase) 2 spray PRN DAILY PRN NS Nasal Congestion; Start 07/28/16 at 22:45 Olanzapine (Zyprexa Zydis) 1.25 mg PRN Q2HR PRN PO Psych; Start 07/28/16 at 22: 45 Acetaminophen (Tylenol) 650 mg PRN Q4HRS PRN PO PAIN / TEMP; Start 07/29/16 at 06:30 Acetaminophen (Tylenol) 650 mg PRN Q4HRS PRN RC PAIN / TEMP; Start 07/29/16 at 06:30 Albuterol Sulfate (Ventolin Hfa) 1 puff PRN Q4HRS PRN IH Dyspnea; Start at 06:30; Stop 07/29/16 at 07:22; Status DC Carvedilol (Coreg) 6.25 mg BIDWMEALS PO Last administered on 07/29/16 08:31; Start 07/29/16 at 08:00; Stop 07/29/16 at 10:49; Status DC Clobetasol Propionate (Temovate) 1 lyudmila BID TP Last administered on 08/01/16 19 :20; Start 07/29/16 at 09:00 Docusate Sodium (Colace) 100 mg PRN DAILY PRN PO CONSTIPATION; Start 07/29/16 at 06:30 Furosemide (Lasix) 20 mg DAILY PO Last administered on 08/01/16 08:20; Start 07/29/16 at 09:00 Magnesium Hydroxide (Milk Of Magnesia) 2,400 mg PRN QHS PRN PO CONSTIPATION; Start 07/29/16 at 06:30 Miconazole Nitrate (Desenex) 1 lyudmila PRN DAILY PRN TP ITCHING; Start 07/29/16 at 06:30; Stop 07/29/16 at 07:20; Status DC Multi-Ingred Cream/Lotion/Oil/ Oint (Hydrocerin) 1 lyudmila QHS TP Last administered on 08/01/16 19:20; Start 07/29/16 at 21:00 Pantoprazole Sodium (Protonix) 40 mg DAILYAC PO Last administered on 08/01/16 08:20; Start 07/29/16 at 07:30 Tamsulosin HCl (Flomax) 0.4 mg BID PO Last administered on 08/01/16 19:19; Start 07/29/16 at 09:00 Non-Formulary Medication 650 mg PRN Q4HRS PRN PO PAIN / TEMP; Start 07/29/16 at 06:30; Status UNV Artificial Tears (Artificial Tears) 2 drop PRN Q2HR PRN OU Artificial Eye Dryness; Start 07/29/16 at 06:30 Non-Formulary Medication 1 lyudmila PRN PRN TP CONGESTION; Start 07/29/16 at 06:30; Stop 07/29/16 at 07:24; Status DC Miconazole Nitrate (Monistat-Derm) 1 lyudmila PRN DAILY PRN TP ITCHING; Start at 07:30 Albuterol/ Ipratropium (Duoneb) 3 ml PRN Q4HRS PRN NEB SHORTNESS OF BREATH; Start 07/29/16 at 07:30 Carvedilol (Coreg) 6.25 mg Q12HR PO Last administered on 08/01/16 19:20; Start 07/29/16 at 21:00 Prenat Multivit/ [place]/Iron/Folic Ac (Multivitamin ) 1 tab DAILYWLUN PO Last administered on 08/01/16 11:59; Start 07/29/16 at 12:00 Bupropion HCl (Wellbutrin Xl) 150 mg DAILY PO Last administered on 08/01/16 08 :21; Start 07/30/16 at 09:00 Active Scripts Active Reported Lotrimin Af (Miconazole Nitrate) 90 Gm Powder 1 Lyudmila TP PRN PRN Artificial Tears Eye Drops (Dextran 70/Hypromellose) 15 Ml Drops 2 Drop LEFTEYE PRN Q2HR PRN Triamcinolone Acetonide 15 Gm Cream..g. 1 Lyudmila TP BID Clobetasol Propionate 15 Gm Cream..g. 1 Lyudmila TP BID Hydrocerin Cream (Mineral Oil/Petrolatum,White) 454 Gm Cream..g. 1 Lyudmila TP QHS Vicks Vaporub Ointment (Eucalyptus Oil/Menthol/Camphor) 50 Gm Oint...g. 1 Lyudmila TP PRN PRN Ra Saline Enema (Na Phos,M-B/Na Phos,Di-Ba) 133 Ml Enema 133 Ml RC PRN Q24HRS PRN Proventil Hfa Inhaler (Albuterol Sulfate) 6.7 Gm Hfa.aer.ad 1 Puff IH PRN Q4HRS PRN Alum-Mag Hydroxide-Simeth Liq (Mag Hydrox/Al Hydrox/Simeth) 360 Ml Oral.susp 30 Ml PO PRN Q2HR PRN Milk Of Magnesia (Magnesium Hydroxide) 400 Mg/5 Ml Oral.susp 2,400 Mg PO PRN QHS PRN Fluticasone Propionate Nasal [place] (Fluticasone Propionate) 16 Gm [place].susp 2 [place] NS PRN DAILY PRN Colace (Docusate Sodium) 100 Mg Capsule 100 Mg PO PRN DAILY PRN Acetaminophen 325 Mg Tablet 650 Mg PO PRN Q4HRS PRN Acetaminophen Supp (Acetaminophen) 650 Mg Supp.rect 650 Mg RC PRN Q4HRS PRN Acetaminophen 160 Mg/5 Ml Oral.susp 650 Mg PO PRN Q4HRS PRN Tamsulosin Hcl 0.4 Mg Cap.er.24h 0.4 Mg PO BID Carvedilol 6.25 Mg Tablet 6.25 Mg PO BIDWMEALS Venlafaxine Hcl 25 Mg Tablet 25 Mg PO DAILY Protonix (Pantoprazole Sodium) 40 Mg Tablet.dr 40 Mg PO DAILY Lasix (Furosemide) 20 Mg Tablet 20 Mg PO DAILY SHANNON SIMMONS MD Aug 01, 2016 21:08
--- NOTE | 2016-08-01 22:56 | PN ---
DATE: 07/31/2016 PSYCHIATRIC PROGRESS NOTE This is late entry of 07/31/2016, covers elements not covered in my initial note. SUBJECTIVE: The patient slept 7-1/4 hours previous night, per nursing report has been calm, compliant, remains on oxygen 2 liters. No sexual behaviors were noted, asking for his son. REVIEW OF SYSTEMS: Shortness of breath. No CV, , GI, eye, ENT system symptoms on review. MENTAL STATUS EXAMINATION: Reasonably oriented. Speech has some latency, coherent. Abstraction fair, computation impaired, language function intact. Mood and affect is improved. 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 LABORATORY DATA: Reviewed. IMPRESSION: Unchanged from initial note. PLAN: Continue current psychotropics mentioned in my initial note including Wellbutrin XL 150 mg a day. Adjust further as clinically indicated. MAN Kedar SIMMONS MD DR: MERCEDES/maciej JOB#: [id number] / [id number]
[2016-08-02 05:45] VITALS: BP 149/76
[2016-08-02] MEDS: PANTOPRAZOLE 40 MG TABLET. PO SCH ×2 (07:34→08:23)
[2016-08-02] MEDS: TAMSULOSIN 0.4 MG CAP.ER.24H. PO SCH ×2 (08:23→19:08)
[2016-08-02] MEDS: CARVEDILOL 6.25 MG TABLET PO SCH ×2 (08:23→19:08)
[2016-08-02] MEDS: buPROPion XL 150 MG TAB.ER.24H PO SCH (08:23)
[2016-08-02] MEDS: FUROSEMIDE 20 MG TABLET PO SCH (08:23)
[2016-08-02] MEDS: MICONAZOLE NITRATE 2% TOPICAL CREAM 28GM TUBE. TP PRN (08:25)
[2016-08-02] MEDS: CLOBETASOL 0.05% TP SCH ×2 (08:26→19:10)
[2016-08-02] MEDS: PRENATAL MULTIVITAMIN TABLET. PO SCH (11:48)
[2016-08-02 15:44] VITALS: BP 128/67
[2016-08-02] MEDS: MINERAL OIL/PETROLATUM TOPICAL CREAM 113GM JAR. TP SCH (19:10)
[2016-08-02] MEDS: QUEtiapine 25 MG TABLET. PO SCH (19:42)
--- NOTE | 2016-08-02 21:10 | PDOC ---
Exam Mando Demential Exam: Mando Note: Please also refer to the separate dictated note~for this date of service dictated separately.~Patient seen individually. Discussed the patient with Nursing staff reviewed the chart.~Reviewed interim history and current functioning. Reviewed vital signs,~Labs/ Radiology~and current medications noted below. Continue current treatment with the changes noted in the dictated addendum note Assessment: Vital Signs: Vital Signs Date Time Temp Pulse Resp B/P Pulse Ox O2 Delivery O2 Flow Rate FiO2 08/02/16 19:08 80 128/67 08/02/16 15:44 97.4 18 95 07/31/16 06:21 Room Air 07/30/16 15:30 2.0 I&O Intake and Output 08/02/16 07:00 Intake Total 1060 ml Balance 1060 ml Intake Oral 1060 ml # Voids 1 # Bowel Movements 1 Current Medications: Meds: Current Medications Acetaminophen (Tylenol) 650 mg PRN Q6HRS PRN PO PAIN / TEMP; Start 07/28/16 at 22:45; Stop 07/29/16 at 06:32; Status DC Multi-Ingredient Ointment (Analgesic [place]) 1 lyudmila PRN QID PRN TP MUSCLE PAIN; Start 07/28/16 at 22:45 Al Hydroxide/Mg Hydroxide (Mylanta Plus Xs) 15 ml PRN AFTMEALHC PRN PO DYSPEPSIA; Start 07/28/16 at 22:45; Stop 07/29/16 at 06:32; Status DC Magnesium Hydroxide (Milk Of Magnesia) 2,400 mg PRN QHS PRN PO CONSTIPATION; Start 07/28/16 at 22:45; Stop 07/29/16 at 06:32; Status DC Venlafaxine HCl (Effexor) 25 mg DAILY PO Depression Last administered on t 08:31; Start 07/29/16 at 09:00; Stop 07/29/16 at 18:31; Status DC Fluticasone Propionate (Flonase) 2 spray PRN DAILY PRN NS Nasal Congestion; Start 07/28/16 at 22:45 Olanzapine (Zyprexa Zydis) 1.25 mg PRN Q2HR PRN PO Psych; Start 07/28/16 at 22: 45 Acetaminophen (Tylenol) 650 mg PRN Q4HRS PRN PO PAIN / TEMP; Start 07/29/16 at 06:30 Acetaminophen (Tylenol) 650 mg PRN Q4HRS PRN RC PAIN / TEMP; Start 07/29/16 at 06:30 Albuterol Sulfate (Ventolin Hfa) 1 puff PRN Q4HRS PRN IH Dyspnea; Start at 06:30; Stop 07/29/16 at 07:22; Status DC Carvedilol (Coreg) 6.25 mg BIDWMEALS PO Last administered on 07/29/16 08:31; Start 07/29/16 at 08:00; Stop 07/29/16 at 10:49; Status DC Clobetasol Propionate (Temovate) 1 lyudmila BID TP Last administered on 08/02/16 19 :10; Start 07/29/16 at 09:00 Docusate Sodium (Colace) 100 mg PRN DAILY PRN PO CONSTIPATION; Start 07/29/16 at 06:30 Furosemide (Lasix) 20 mg DAILY PO Last administered on 08/02/16 08:23; Start 07/29/16 at 09:00 Magnesium Hydroxide (Milk Of Magnesia) 2,400 mg PRN QHS PRN PO CONSTIPATION; Start 07/29/16 at 06:30 Miconazole Nitrate (Desenex) 1 lyudmila PRN DAILY PRN TP ITCHING; Start 07/29/16 at 06:30; Stop 07/29/16 at 07:20; Status DC Multi-Ingred Cream/Lotion/Oil/ Oint (Hydrocerin) 1 lyudmila QHS TP Last administered on 08/02/16 19:10; Start 07/29/16 at 21:00 Pantoprazole Sodium (Protonix) 40 mg DAILYAC PO Last administered on 08/02/16 08:23; Start 07/29/16 at 07:30 Tamsulosin HCl (Flomax) 0.4 mg BID PO Last administered on 08/02/16 19:08; Start 07/29/16 at 09:00 Non-Formulary Medication 650 mg PRN Q4HRS PRN PO PAIN / TEMP; Start 07/29/16 at 06:30; Status UNV Artificial Tears (Artificial Tears) 2 drop PRN Q2HR PRN OU Artificial Eye Dryness; Start 07/29/16 at 06:30 Non-Formulary Medication 1 lyudmila PRN PRN TP CONGESTION; Start 07/29/16 at 06:30; Stop 07/29/16 at 07:24; Status DC Miconazole Nitrate (Monistat-Derm) 1 lyudmila PRN DAILY PRN TP ITCHING Last administered on 08/02/16 08:25; Start 07/29/16 at 07:30 Albuterol/ Ipratropium (Duoneb) 3 ml PRN Q4HRS PRN NEB SHORTNESS OF BREATH; Start 07/29/16 at 07:30 Carvedilol (Coreg) 6.25 mg Q12HR PO Last administered on 08/02/16 19:08; Start 07/29/16 at 21:00 Prenat Multivit/ [place]/Iron/Folic Ac (Multivitamin ) 1 tab DAILYWLUN PO Last administered on 08/02/16 11:48; Start 07/29/16 at 12:00 Bupropion HCl (Wellbutrin Xl) 150 mg DAILY PO Last administered on 08/02/16 08 :23; Start 07/30/16 at 09:00 Quetiapine Fumarate (SEROquel) 25 mg QHS PO Last administered on 08/02/16 19: 42; Start 08/02/16 at 21:00 Active Scripts Active Reported Lotrimin Af (Miconazole Nitrate) 90 Gm Powder 1 Lyudmila TP PRN PRN Artificial Tears Eye Drops (Dextran 70/Hypromellose) 15 Ml Drops 2 Drop LEFTEYE PRN Q2HR PRN Triamcinolone Acetonide 15 Gm Cream..g. 1 Lyudmila TP BID Clobetasol Propionate 15 Gm Cream..g. 1 Lyudmila TP BID Hydrocerin Cream (Mineral Oil/Petrolatum,White) 454 Gm Cream..g. 1 Lyudmila TP QHS Vicks Vaporub Ointment (Eucalyptus Oil/Menthol/Camphor) 50 Gm Oint...g. 1 Lyudmila TP PRN PRN Ra Saline Enema (Na Phos,M-B/Na Phos,Di-Ba) 133 Ml Enema 133 Ml RC PRN Q24HRS PRN Proventil Hfa Inhaler (Albuterol Sulfate) 6.7 Gm Hfa.aer.ad 1 Puff IH PRN Q4HRS PRN Alum-Mag Hydroxide-Simeth Liq (Mag Hydrox/Al Hydrox/Simeth) 360 Ml Oral.susp 30 Ml PO PRN Q2HR PRN Milk Of Magnesia (Magnesium Hydroxide) 400 Mg/5 Ml Oral.susp 2,400 Mg PO PRN QHS PRN Fluticasone Propionate Nasal [place] (Fluticasone Propionate) 16 Gm [place].susp 2 [place] NS PRN DAILY PRN Colace (Docusate Sodium) 100 Mg Capsule 100 Mg PO PRN DAILY PRN Acetaminophen 325 Mg Tablet 650 Mg PO PRN Q4HRS PRN Acetaminophen Supp (Acetaminophen) 650 Mg Supp.rect 650 Mg RC PRN Q4HRS PRN Acetaminophen 160 Mg/5 Ml Oral.susp 650 Mg PO PRN Q4HRS PRN Tamsulosin Hcl 0.4 Mg Cap.er.24h 0.4 Mg PO BID Carvedilol 6.25 Mg Tablet 6.25 Mg PO BIDWMEALS Venlafaxine Hcl 25 Mg Tablet 25 Mg PO DAILY Protonix (Pantoprazole Sodium) 40 Mg Tablet.dr 40 Mg PO DAILY Lasix (Furosemide) 20 Mg Tablet 20 Mg PO DAILY SHANNON SIMMONS MD Aug 02, 2016 21:10
[2016-08-03 06:37] VITALS: BP 134/80
[2016-08-03] MEDS: TAMSULOSIN 0.4 MG CAP.ER.24H. PO SCH ×2 (09:11→19:36)
[2016-08-03] MEDS: CARVEDILOL 6.25 MG TABLET PO SCH ×2 (09:12→19:36)
[2016-08-03] MEDS: FUROSEMIDE 20 MG TABLET PO SCH (09:12)
[2016-08-03] MEDS: buPROPion XL 150 MG TAB.ER.24H PO SCH (09:12)
[2016-08-03] MEDS: CLOBETASOL 0.05% TP SCH ×2 (09:13→19:41)
[2016-08-03] MEDS: PRENATAL MULTIVITAMIN TABLET. PO SCH (11:15)
[2016-08-03 15:56] VITALS: BP 159/76
[2016-08-03] MEDS: QUEtiapine 25 MG TABLET. PO SCH (19:37)
[2016-08-03] MEDS: MINERAL OIL/PETROLATUM TOPICAL CREAM 113GM JAR. TP SCH (19:41)
--- NOTE | 2016-08-03 20:11 | PDOC ---
Exam Mando Demential Exam: Mando Note: Please also refer to the separate dictated note~for this date of service dictated separately.~Patient seen individually. Discussed the patient with Nursing staff reviewed the chart.~Reviewed interim history and current functioning. Reviewed vital signs,~Labs/ Radiology~and current medications noted below. Continue current treatment with the changes noted in the dictated addendum note Assessment: Vital Signs: Vital Signs Date Time Temp Pulse Resp B/P Pulse Ox O2 Delivery O2 Flow Rate FiO2 08/03/16 19:36 80 159/76 08/03/16 15:56 98.0 16 95 07/31/16 06:21 Room Air 07/30/16 15:30 2.0 I&O Intake and Output 08/03/16 07:00 Intake Total 720 ml Balance 720 ml Intake Oral 720 ml Current Medications: Meds: Current Medications Acetaminophen (Tylenol) 650 mg PRN Q6HRS PRN PO PAIN / TEMP; Start 07/28/16 at 22:45; Stop 07/29/16 at 06:32; Status DC Multi-Ingredient Ointment (Analgesic [place]) 1 lyudmila PRN QID PRN TP MUSCLE PAIN; Start 07/28/16 at 22:45 Al Hydroxide/Mg Hydroxide (Mylanta Plus Xs) 15 ml PRN AFTMEALHC PRN PO DYSPEPSIA; Start 07/28/16 at 22:45; Stop 07/29/16 at 06:32; Status DC Magnesium Hydroxide (Milk Of Magnesia) 2,400 mg PRN QHS PRN PO CONSTIPATION; Start 07/28/16 at 22:45; Stop 07/29/16 at 06:32; Status DC Venlafaxine HCl (Effexor) 25 mg DAILY PO Depression Last administered on t 08:31; Start 07/29/16 at 09:00; Stop 07/29/16 at 18:31; Status DC Fluticasone Propionate (Flonase) 2 spray PRN DAILY PRN NS Nasal Congestion; Start 07/28/16 at 22:45 Olanzapine (Zyprexa Zydis) 1.25 mg PRN Q2HR PRN PO Psych; Start 07/28/16 at 22: 45 Acetaminophen (Tylenol) 650 mg PRN Q4HRS PRN PO PAIN / TEMP; Start 07/29/16 at 06:30 Acetaminophen (Tylenol) 650 mg PRN Q4HRS PRN RC PAIN / TEMP; Start 07/29/16 at 06:30 Albuterol Sulfate (Ventolin Hfa) 1 puff PRN Q4HRS PRN IH Dyspnea; Start at 06:30; Stop 07/29/16 at 07:22; Status DC Carvedilol (Coreg) 6.25 mg BIDWMEALS PO Last administered on 07/29/16 08:31; Start 07/29/16 at 08:00; Stop 07/29/16 at 10:49; Status DC Clobetasol Propionate (Temovate) 1 lyudmila BID TP Last administered on 08/03/16 19 :41; Start 07/29/16 at 09:00 Docusate Sodium (Colace) 100 mg PRN DAILY PRN PO CONSTIPATION; Start 07/29/16 at 06:30 Furosemide (Lasix) 20 mg DAILY PO Last administered on 08/03/16 09:12; Start 07/29/16 at 09:00 Magnesium Hydroxide (Milk Of Magnesia) 2,400 mg PRN QHS PRN PO CONSTIPATION; Start 07/29/16 at 06:30 Miconazole Nitrate (Desenex) 1 lyudmila PRN DAILY PRN TP ITCHING; Start 07/29/16 at 06:30; Stop 07/29/16 at 07:20; Status DC Multi-Ingred Cream/Lotion/Oil/ Oint (Hydrocerin) 1 lyudmila QHS TP Last administered on 08/03/16 19:41; Start 07/29/16 at 21:00 Pantoprazole Sodium (Protonix) 40 mg DAILYAC PO Last administered on 08/02/16 08:23; Start 07/29/16 at 07:30 Tamsulosin HCl (Flomax) 0.4 mg BID PO Last administered on 08/03/16 19:36; Start 07/29/16 at 09:00 Non-Formulary Medication 650 mg PRN Q4HRS PRN PO PAIN / TEMP; Start 07/29/16 at 06:30; Status UNV Artificial Tears (Artificial Tears) 2 drop PRN Q2HR PRN OU Artificial Eye Dryness; Start 07/29/16 at 06:30 Non-Formulary Medication 1 lyudmila PRN PRN TP CONGESTION; Start 07/29/16 at 06:30; Stop 07/29/16 at 07:24; Status DC Miconazole Nitrate (Monistat-Derm) 1 lyudmila PRN DAILY PRN TP ITCHING Last administered on 08/02/16 08:25; Start 07/29/16 at 07:30 Albuterol/ Ipratropium (Duoneb) 3 ml PRN Q4HRS PRN NEB SHORTNESS OF BREATH; Start 07/29/16 at 07:30 Carvedilol (Coreg) 6.25 mg Q12HR PO Last administered on 08/03/16 19:36; Start 07/29/16 at 21:00 Prenat Multivit/ [place]/Iron/Folic Ac (Multivitamin ) 1 tab DAILYWLUN PO Last administered on 08/03/16 11:15; Start 07/29/16 at 12:00 Bupropion HCl (Wellbutrin Xl) 150 mg DAILY PO Last administered on 08/03/16 09 :12; Start 07/30/16 at 09:00 Quetiapine Fumarate (SEROquel) 25 mg QHS PO Last administered on 08/03/16 19: 37; Start 08/02/16 at 21:00 Active Scripts Active Reported Lotrimin Af (Miconazole Nitrate) 90 Gm Powder 1 Lyud[place] TP PRN PRN Artificial Tears Eye Drops (Dextran 70/Hypromellose) 15 Ml Drops 2 Drop LEFTEYE PRN Q2HR PRN Triamcinolone Acetonide 15 Gm Cream..g. 1 Lyudmila TP BID Clobetasol Propionate 15 Gm Cream..g. 1 Lyudmila TP BID Hydrocerin Cream (Mineral Oil/Petrolatum,White) 454 Gm Cream..g. 1 Lyudmila TP QHS Vicks Vaporub Ointment (Eucalyptus Oil/Menthol/Camphor) 50 Gm Oint...g. 1 Lyudmila TP PRN PRN Ra Saline Enema (Na Phos,M-B/Na Phos,Di-Ba) 133 Ml Enema 133 Ml RC PRN Q24HRS PRN Proventil Hfa Inhaler (Albuterol Sulfate) 6.7 Gm Hfa.aer.ad 1 Puff IH PRN Q4HRS PRN Alum-Mag Hydroxide-Simeth Liq (Mag Hydrox/Al Hydrox/Simeth) 360 Ml Oral.susp 30 Ml PO PRN Q2HR PRN Milk Of Magnesia (Magnesium Hydroxide) 400 Mg/5 Ml Oral.susp 2,400 Mg PO PRN QHS PRN Fluticasone Propionate Nasal [place] (Fluticasone Propionate) 16 Gm [place].susp 2 [place] NS PRN DAILY PRN Colace (Docusate Sodium) 100 Mg Capsule 100 Mg PO PRN DAILY PRN Acetaminophen 325 Mg Tablet 650 Mg PO PRN Q4HRS PRN Acetaminophen Supp (Acetaminophen) 650 Mg Supp.rect 650 Mg RC PRN Q4HRS PRN Acetaminophen 160 Mg/5 Ml Oral.susp 650 Mg PO PRN Q4HRS PRN Tamsulosin Hcl 0.4 Mg Cap.er.24h 0.4 Mg PO BID Carvedilol 6.25 Mg Tablet 6.25 Mg PO BIDWMEALS Venlafaxine Hcl 25 Mg Tablet 25 Mg PO DAILY Protonix (Pantoprazole Sodium) 40 Mg Tablet.dr 40 Mg PO DAILY Lasix (Furosemide) 20 Mg Tablet 20 Mg PO DAILY SHANNON SIMMONS MD Aug 03, 2016 20:11
--- NOTE | 2016-08-04 01:53 | PN ---
DATE: 08/01/2016 PSYCHIATRIC PROGRESS NOTE This is a late entry of 08/01/2016 covers elements not covered in my initial note. SUBJECTIVE: Per nursing report, the patient has been calm, cooperative, no sexually inappropriate behaviors noted. No CV, , pulmonary, eye system symptoms on review. MENTAL STATUS EXAM: Reasonably oriented. Eye contact is poor. He is somewhat overly controlled, anxious, ruminative, fixated on wanting to be discharged home. Speech coherent, has some latency, abstraction fair, computation impaired, language function intact, attention span short, mood and affect anxious, labile at times. LABORATORY DATA: Reviewed. 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 PLAN: Maintain Wellbutrin-XL 150 mg a day, Zyprexa p.r.n. If agitation and aggression resurfaces, we may add low-dose Depakote as a mood stabilizer and consider adding Seroquel to augment the Wellbutrin and as a mood stabilizer. MAN Kedar SIMMONS MD DR: MERCEDES/maciej JOB#: [id number] / [id number]
--- NOTE | 2016-08-04 02:35 | PN ---
DATE: 08/02/2016 PSYCHIATRIC PROGRESS NOTE This is a late entry for 08/02/2016, covers elements not covered in my initial note. SUBJECTIVE: The patient was staffed at a treatment team meeting with the entire team and the patient's daughter, Kayley, attended. Lengthy review of the patient's history, agitation, aggression, daughter's concerns. The patient was paranoid, suspicious that people were stealing from him. He does not seem to recognize, he cannot live by himself. 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 No CV, , pulmonary system symptoms on review. MENTAL STATUS EXAM: Reasonably oriented. Speech is coherent, low in volume, abstraction fair, computation impaired, language function intact. Mood and affect somewhat anxious, labile. LABORATORY DATA: Reviewed. IMPRESSION: Major depressive disorder with psychotic features; anxiety disorder, unspecified; impulse control disorder, unspecified. PLAN: Continue Wellbutrin-XL 150 mg a day, start Seroquel 25 mg at bedtime. Adjust further as clinically indicated. SHANNON SIMMONS MD DR: MERCEDES/maciej JOB#: [id number] / [id number]
[2016-08-04 06:45] VITALS: BP 152/71
[2016-08-04] MEDS: PANTOPRAZOLE 40 MG TABLET. PO SCH (08:59)
[2016-08-04] MEDS: FUROSEMIDE 20 MG TABLET PO SCH (09:00)
[2016-08-04] MEDS: TAMSULOSIN 0.4 MG CAP.ER.24H. PO SCH ×2 (09:00→19:22)
[2016-08-04] MEDS: CARVEDILOL 6.25 MG TABLET PO SCH ×2 (09:00→19:21)
[2016-08-04] MEDS: buPROPion XL 150 MG TAB.ER.24H PO SCH (09:00)
[2016-08-04] MEDS: CLOBETASOL 0.05% TP SCH ×2 (09:01→19:23)
[2016-08-04] MEDS: PRENATAL MULTIVITAMIN TABLET. PO SCH (09:02)
[2016-08-04 09:37] LABS: BASO # 0.1 x10^3/uL (0.0-0.2); BASO % 1 % (0-3); EOS # 0.4 x10^3/uL (0.0-0.7); EOS % 6 % (0-3); HEMATOCRIT 40.3 % (39.0-53.0); HEMOGLOBIN 13.1 g/dL (13.0-17.5); LYMPH # 1.2 x10^3/uL (1.0-4.8); LYMPH % 17 % (24-48); MEAN CORPUSCULAR HEMOGLOBIN 29 pg (25-35); MEAN CORPUSCULAR HGB CONC 32 g/dL (31-37); MEAN CORPUSCULAR VOLUME 89 fL (79-100); MONO # 0.6 x10^3/uL (0.0-1.1); MONO % 9 % (0-9); NEUT # 4.8 x10^3uL (1.8-7.7); NEUT % 68 % (31-73); PLATELET COUNT 118 x10^3/uL (140-400); RED BLOOD COUNT 4.53 x10^6/uL (4.30-5.70); RED CELL DISTRIBUTION WIDTH 14.5 % (11.5-14.5); WHITE BLOOD COUNT 7.1 x10^3/uL (4.0-11.0)
[2016-08-04 09:47] LABS: ALBUMIN 3.3 g/dL (3.4-5.0); ALBUMIN/GLOBULIN RATIO 0.8 (1.0-1.7); CALCIUM 8.6 mg/dL (8.5-10.1); GFR 31.8; POTASSIUM 4.3 mmol/L (3.5-5.1); TOTAL BILIRUBIN 0.4 mg/dL (0.2-1.0); TOTAL PROTEIN 7.2 g/dL (6.4-8.2)
[2016-08-04 16:03] VITALS: BP 114/67
[2016-08-04] MEDS: QUEtiapine 25 MG TABLET. PO SCH (19:22)
[2016-08-04] MEDS: MINERAL OIL/PETROLATUM TOPICAL CREAM 113GM JAR. TP SCH (19:23)
--- NOTE | 2016-08-04 22:07 | PDOC ---
Exam Mando Demential Exam: Mando Note: Please also refer to the separate dictated note~for this date of service dictated separately.~Patient seen individually. Discussed the patient with Nursing staff reviewed the chart.~Reviewed interim history and current functioning. Reviewed vital signs,~Labs/ Radiology~and current medications noted below. Continue current treatment with the changes noted in the dictated addendum note Assessment: Vital Signs: Vital Signs Date Time Temp Pulse Resp B/P Pulse Ox O2 Delivery O2 Flow Rate FiO2 08/04/16 19:21 83 114/67 08/04/16 16:03 98.2 18 93 Room Air 07/30/16 15:30 2.0 I&O Intake and Output 08/04/16 07:00 Intake Total 960 ml Balance 960 ml Intake Oral 960 ml Labs: Laboratory Tests Test 08/04/16 09:15 White Blood Count 7.1x10^3/uL (4.0-11.0) Red Blood Count 4.53x10^6/uL (4.30-5.70) Hemoglobin 13.1g/dL (13.0-17.5) Hematocrit 40.3% (39.0-53.0) Mean Corpuscular Volume 89fL (79-100) Mean Corpuscular Hemoglobin 29pg (25-35) Mean Corpuscular Hemoglobin Concent 32g/dL (31-37) Red Cell Distribution Width 14.5% (11.5-14.5) Platelet Count 118x10^3/uL (140-400) L Neutrophils (%) (Auto) 68% (31-73) Lymphocytes (%) (Auto) 17% (24-48) L Monocytes (%) (Auto) 9% (0-9) Eosinophils (%) (Auto) 6% (0-3) H Basophils (%) (Auto) 1% (0-3) Neutrophils # (Auto) 4.8x10^3uL (1.8-7.7) Lymphocytes # (Auto) 1.2x10^3/uL (1.0-4.8) Monocytes # (Auto) 0.6x10^3/uL (0.0-1.1) Eosinophils # (Auto) 0.4x10^3/uL (0.0-0.7) Basophils # (Auto) 0.1x10^3/uL (0.0-0.2) Sodium Level 144mmol/L (136-145) Potassium Level 4.3mmol/L (3.5-5.1) Chloride Level 107mmol/L (98-107) Carbon Dioxide Level 29mmol/L (21-32) Anion Gap 8 (6-14) Blood Urea Nitrogen 30mg/dL (8-26) H Creatinine 2.0mg/dL (0.7-1.3) H Estimated GFR (Cockcroft-Gault) 31.8 BUN/Creatinine Ratio 15 (6-20) Glucose Level 113mg/dL (70-99) H Calcium Level 8.6mg/dL (8.5-10.1) Total Bilirubin 0.4mg/dL (0.2-1.0) Aspartate Amino Transferase (AST) 12U/L (15-37) L Alanine Aminotransferase (ALT) 18U/L (16-63) Alkaline Phosphatase 74U/L (46-116) Total Protein 7.2g/dL (6.4-8.2) Albumin 3.3g/dL (3.4-5.0) L Albumin/Globulin Ratio 0.8 (1.0-1.7) L Current Medications: Meds: Current Medications Acetaminophen (Tylenol) 650 mg PRN Q6HRS PRN PO PAIN / TEMP; Start 07/28/16 at 22:45; Stop 07/29/16 at 06:32; Status DC Multi-Ingredient Ointment (Analgesic [place]) 1 lyudmila PRN QID PRN TP MUSCLE PAIN; Start 07/28/16 at 22:45 Al Hydroxide/Mg Hydroxide (Mylanta Plus Xs) 15 ml PRN AFTMEALHC PRN PO DYSPEPSIA; Start 07/28/16 at 22:45; Stop 07/29/16 at 06:32; Status DC Magnesium Hydroxide (Milk Of Magnesia) 2,400 mg PRN QHS PRN PO CONSTIPATION; Start 07/28/16 at 22:45; Stop 07/29/16 at 06:32; Status DC Venlafaxine HCl (Effexor) 25 mg DAILY PO Depression Last administered on t 08:31; Start 07/29/16 at 09:00; Stop 07/29/16 at 18:31; Status DC Fluticasone Propionate (Flonase) 2 spray PRN DAILY PRN NS Nasal Congestion; Start 07/28/16 at 22:45 Olanzapine (Zyprexa Zydis) 1.25 mg PRN Q2HR PRN PO Psych; Start 07/28/16 at 22: 45 Acetaminophen (Tylenol) 650 mg PRN Q4HRS PRN PO PAIN / TEMP; Start 07/29/16 at 06:30 Acetaminophen (Tylenol) 650 mg PRN Q4HRS PRN RC PAIN / TEMP; Start 07/29/16 at 06:30 Albuterol Sulfate (Ventolin Hfa) 1 puff PRN Q4HRS PRN IH Dyspnea; Start at 06:30; Stop 07/29/16 at 07:22; Status DC Carvedilol (Coreg) 6.25 mg BIDWMEALS PO Last administered on 07/29/16 08:31; Start 07/29/16 at 08:00; Stop 07/29/16 at 10:49; Status DC Clobetasol Propionate (Temovate) 1 lyudmila BID TP Last administered on 08/04/16 19 :23; Start 07/29/16 at 09:00 Docusate Sodium (Colace) 100 mg PRN DAILY PRN PO CONSTIPATION; Start 07/29/16 at 06:30 Furosemide (Lasix) 20 mg DAILY PO Last administered on 08/04/16 09:00; Start 07/29/16 at 09:00 Magnesium Hydroxide (Milk Of Magnesia) 2,400 mg PRN QHS PRN PO CONSTIPATION; Start 07/29/16 at 06:30 Miconazole Nitrate (Desenex) 1 lyudmila PRN DAILY PRN TP ITCHING; Start 07/29/16 at 06:30; Stop 07/29/16 at 07:20; Status DC Multi-Ingred Cream/Lotion/Oil/ Oint (Hydrocerin) 1 lyudmila QHS TP Last administered on 08/04/16 19:23; Start 07/29/16 at 21:00 Pantoprazole Sodium (Protonix) 40 mg DAILYAC PO Last administered on 08/04/16 08:59; Start 07/29/16 at 07:30 Tamsulosin HCl (Flomax) 0.4 mg BID PO Last administered on 08/04/16 19:22; Start 07/29/16 at 09:00 Non-Formulary Medication 650 mg PRN Q4HRS PRN PO PAIN / TEMP; Start 07/29/16 at 06:30; Status UNV Artificial Tears (Artificial Tears) 2 drop PRN Q2HR PRN OU Artificial Eye Dryness; Start 07/29/16 at 06:30 Non-Formulary Medication 1 lyudmila PRN PRN TP CONGESTION; Start 07/29/16 at 06:30; Stop 07/29/16 at 07:24; Status DC Miconazole Nitrate (Monistat-Derm) 1 lyudmila PRN DAILY PRN TP ITCHING Last administered on 08/02/16 08:25; Start 07/29/16 at 07:30 Albuterol/ Ipratropium (Duoneb) 3 ml PRN Q4HRS PRN NEB SHORTNESS OF BREATH; Start 07/29/16 at 07:30 Carvedilol (Coreg) 6.25 mg Q12HR PO Last administered on 08/04/16 19:21; Start 07/29/16 at 21:00 Prenat Multivit/ [place]/Iron/Folic Ac (Multivitamin ) 1 tab DAILYWLUN PO Last administered on 08/04/16 09:02; Start 07/29/16 at 12:00 Bupropion HCl (Wellbutrin Xl) 150 mg DAILY PO Last administered on 08/04/16 09 :00; Start 07/30/16 at 09:00 Quetiapine Fumarate (SEROquel) 25 mg QHS PO Last administered on 08/04/16 19: 22; Start 08/02/16 at 21:00 Active Scripts Active Reported Lotrimin Af (Miconazole Nitrate) 90 Gm Powder 1 Lyudmila TP PRN PRN Artificial Tears Eye Drops (Dextran 70/Hypromellose) 15 Ml Drops 2 Drop LEFTEYE PRN Q2HR PRN Triamcinolone Acetonide 15 Gm Cream..g. 1 Lyudmila TP BID Clobetasol Propionate 15 Gm Cream..g. 1 Lyudmila TP BID Hydrocerin Cream (Mineral Oil/Petrolatum,White) 454 Gm Cream..g. 1 Lyudmila TP QHS Vicks Vaporub Ointment (Eucalyptus Oil/Menthol/Camphor) 50 Gm Oint...g. 1 Lyudmila TP PRN PRN Ra Saline Enema (Na Phos,M-B/Na Phos,Di-Ba) 133 Ml Enema 133 Ml RC PRN Q24HRS PRN Proventil Hfa Inhaler (Albuterol Sulfate) 6.7 Gm Hfa.aer.ad 1 Puff IH PRN Q4HRS PRN Alum-Mag Hydroxide-Simeth Liq (Mag Hydrox/Al Hydrox/Simeth) 360 Ml Oral.susp 30 Ml PO PRN Q2HR PRN Milk Of Magnesia (Magnesium Hydroxide) 400 Mg/5 Ml Oral.susp 2,400 Mg PO PRN QHS PRN Fluticasone Propionate Nasal [place] (Fluticasone Propionate) 16 Gm [place].susp 2 [place] NS PRN DAILY PRN Colace (Docusate Sodium) 100 Mg Capsule 100 Mg PO PRN DAILY PRN Acetaminophen 325 Mg Tablet 650 Mg PO PRN Q4HRS PRN Acetaminophen Supp (Acetaminophen) 650 Mg Supp.rect 650 Mg RC PRN Q4HRS PRN Acetaminophen 160 Mg/5 Ml Oral.susp 650 Mg PO PRN Q4HRS PRN Tamsulosin Hcl 0.4 Mg Cap.er.24h 0.4 Mg PO BID Carvedilol 6.25 Mg Tablet 6.25 Mg PO BIDWMEALS Venlafaxine Hcl 25 Mg Tablet 25 Mg PO DAILY Protonix (Pantoprazole Sodium) 40 Mg Tablet. 40 Mg PO DAILY Lasix (Furosemide) 20 Mg Tablet 20 Mg PO DAILY SHANNON SIMMONS MD Aug 04, 2016 22:07
[2016-08-05 06:24] VITALS: BP 150/76
[2016-08-05] MEDS: PANTOPRAZOLE 40 MG TABLET. PO SCH (08:42)
[2016-08-05] MEDS: buPROPion XL 150 MG TAB.ER.24H PO SCH (08:43)
[2016-08-05] MEDS: FUROSEMIDE 20 MG TABLET PO SCH (08:43)
[2016-08-05] MEDS: TAMSULOSIN 0.4 MG CAP.ER.24H. PO SCH ×2 (08:43→19:41)
[2016-08-05] MEDS: CARVEDILOL 6.25 MG TABLET PO SCH ×2 (08:43→19:38)
[2016-08-05] MEDS: CLOBETASOL 0.05% TP SCH ×2 (08:44→19:44)
[2016-08-05] MEDS: PRENATAL MULTIVITAMIN TABLET. PO SCH (08:46)
[2016-08-05 16:13] VITALS: BP 148/68
[2016-08-05] MEDS: MINERAL OIL/PETROLATUM TOPICAL CREAM 113GM JAR. TP SCH (19:43)
[2016-08-05] MEDS: QUEtiapine 25 MG TABLET. PO SCH (19:43)
--- NOTE | 2016-08-05 21:28 | PDOC ---
Exam Mando Demential Exam: Mando Note: Please also refer to the separate dictated note~for this date of service dictated separately.~Patient seen individually. Discussed the patient with Nursing staff reviewed the chart.~Reviewed interim history and current functioning. Reviewed vital signs,~Labs/ Radiology~and current medications noted below. Continue current treatment with the changes noted in the dictated addendum note Assessment: Vital Signs: Vital Signs Date Time Temp Pulse Resp B/P Pulse Ox O2 Delivery O2 Flow Rate FiO2 08/05/16 19:38 85 148/68 08/05/16 16:13 97.1 19 95 08/05/16 06:24 Room Air 07/30/16 15:30 2.0 I&O Intake and Output 08/05/16 07:00 Intake Total 1320 ml Balance 1320 ml Intake Oral 1320 ml Current Medications: Meds: Current Medications Acetaminophen (Tylenol) 650 mg PRN Q6HRS PRN PO PAIN / TEMP; Start 07/28/16 at 22:45; Stop 07/29/16 at 06:32; Status DC Multi-Ingredient Ointment (Analgesic [place]) 1 lyudmila PRN QID PRN TP MUSCLE PAIN; Start 07/28/16 at 22:45 Al Hydroxide/Mg Hydroxide (Mylanta Plus Xs) 15 ml PRN AFTMEALHC PRN PO DYSPEPSIA; Start 07/28/16 at 22:45; Stop 07/29/16 at 06:32; Status DC Magnesium Hydroxide (Milk Of Magnesia) 2,400 mg PRN QHS PRN PO CONSTIPATION; Start 07/28/16 at 22:45; Stop 07/29/16 at 06:32; Status DC Venlafaxine HCl (Effexor) 25 mg DAILY PO Depression Last administered on t 08:31; Start 07/29/16 at 09:00; Stop 07/29/16 at 18:31; Status DC Fluticasone Propionate (Flonase) 2 spray PRN DAILY PRN NS Nasal Congestion; Start 07/28/16 at 22:45 Olanzapine (Zyprexa Zydis) 1.25 mg PRN Q2HR PRN PO Psych; Start 07/28/16 at 22: 45 Acetaminophen (Tylenol) 650 mg PRN Q4HRS PRN PO PAIN / TEMP; Start 07/29/16 at 06:30 Acetaminophen (Tylenol) 650 mg PRN Q4HRS PRN RC PAIN / TEMP; Start 07/29/16 at 06:30 Albuterol Sulfate (Ventolin Hfa) 1 puff PRN Q4HRS PRN IH Dyspnea; Start at 06:30; Stop 07/29/16 at 07:22; Status DC Carvedilol (Coreg) 6.25 mg BIDWMEALS PO Last administered on 07/29/16 08:31; Start 07/29/16 at 08:00; Stop 07/29/16 at 10:49; Status DC Clobetasol Propionate (Temovate) 1 lyudmila BID TP Last administered on 08/05/16 19 :44; Start 07/29/16 at 09:00 Docusate Sodium (Colace) 100 mg PRN DAILY PRN PO CONSTIPATION; Start 07/29/16 at 06:30 Furosemide (Lasix) 20 mg DAILY PO Last administered on 08/05/16 08:43; Start 07/29/16 at 09:00 Magnesium Hydroxide (Milk Of Magnesia) 2,400 mg PRN QHS PRN PO CONSTIPATION; Start 07/29/16 at 06:30 Miconazole Nitrate (Desenex) 1 lyudmila PRN DAILY PRN TP ITCHING; Start 07/29/16 at 06:30; Stop 07/29/16 at 07:20; Status DC Multi-Ingred Cream/Lotion/Oil/ Oint (Hydrocerin) 1 lyudmila QHS TP Last administered on 08/05/16 19:43; Start 07/29/16 at 21:00 Pantoprazole Sodium (Protonix) 40 mg DAILYAC PO Last administered on 08/05/16 08:42; Start 07/29/16 at 07:30 Tamsulosin HCl (Flomax) 0.4 mg BID PO Last administered on 08/05/16 19:41; Start 07/29/16 at 09:00 Non-Formulary Medication 650 mg PRN Q4HRS PRN PO PAIN / TEMP; Start 07/29/16 at 06:30; Status UNV Artificial Tears (Artificial Tears) 2 drop PRN Q2HR PRN OU Artificial Eye Dryness; Start 07/29/16 at 06:30 Non-Formulary Medication 1 lyudmila PRN PRN TP CONGESTION; Start 07/29/16 at 06:30; Stop 07/29/16 at 07:24; Status DC Miconazole Nitrate (Monistat-Derm) 1 lyudmila PRN DAILY PRN TP ITCHING Last administered on 08/02/16 08:25; Start 07/29/16 at 07:30 Albuterol/ Ipratropium (Duoneb) 3 ml PRN Q4HRS PRN NEB SHORTNESS OF BREATH; Start 07/29/16 at 07:30 Carvedilol (Coreg) 6.25 mg Q12HR PO Last administered on 08/05/16 19:38; Start 07/29/16 at 21:00 Prenat Multivit/ [place]/Iron/Folic Ac (Multivitamin ) 1 tab DAILYWLUN PO Last administered on 08/05/16 08:46; Start 07/29/16 at 12:00 Bupropion HCl (Wellbutrin Xl) 150 mg DAILY PO Last administered on 08/05/16 08 :43; Start 07/30/16 at 09:00 Quetiapine Fumarate (SEROquel) 25 mg QHS PO Last administered on 08/04/16 19: 22; Start 08/02/16 at 21:00; Stop 08/05/16 at 10:04; Status DC Quetiapine Fumarate (SEROquel) 37.5 mg QHS PO Last administered on 08/05/16 19 :43; Start 08/05/16 at 21:00 Active Scripts Active Reported Lotrimin Af (Miconazole Nitrate) 90 Gm Powder 1 Lyudmila TP PRN PRN Artificial Tears Eye Drops (Dextran 70/Hypromellose) 15 Ml Drops 2 Drop LEFTEYE PRN Q2HR PRN Triamcinolone Acetonide 15 Gm Cream..g. 1 Lyudmila TP BID Clobetasol Propionate 15 Gm Cream..g. 1 Lyudmila TP BID Hydrocerin Cream (Mineral Oil/Petrolatum,White) 454 Gm Cream..g. 1 Lyudmila TP QHS Vicks Vaporub Ointment (Eucalyptus Oil/Menthol/Camphor) 50 Gm Oint...g. 1 Lyudmila TP PRN PRN Ra Saline Enema (Na Phos,M-B/Na Phos,Di-Ba) 133 Ml Enema 133 Ml RC PRN Q24HRS PRN Proventil Hfa Inhaler (Albuterol Sulfate) 6.7 Gm Hfa.aer.ad 1 Puff IH PRN Q4HRS PRN Alum-Mag Hydroxide-Simeth Liq (Mag Hydrox/Al Hydrox/Simeth) 360 Ml Oral.susp 30 Ml PO PRN Q2HR PRN Milk Of Magnesia (Magnesium Hydroxide) 400 Mg/5 Ml Oral.susp 2,400 Mg PO PRN QHS PRN Fluticasone Propionate Nasal [place] (Fluticasone Propionate) 16 Gm [place].susp 2 [place] NS PRN DAILY PRN Colace (Docusate Sodium) 100 Mg Capsule 100 Mg PO PRN DAILY PRN Acetaminophen 325 Mg Tablet 650 Mg PO PRN Q4HRS PRN Acetaminophen Supp (Acetaminophen) 650 Mg Supp.rect 650 Mg RC PRN Q4HRS PRN Acetaminophen 160 Mg/5 Ml Oral.susp 650 Mg PO PRN Q4HRS PRN Tamsulosin Hcl 0.4 Mg Cap.er.24h 0.4 Mg PO BID Carvedilol 6.25 Mg Tablet 6.25 Mg PO BIDWMEALS Venlafaxine Hcl 25 Mg Tablet 25 Mg PO DAILY Protonix (Pantoprazole Sodium) 40 Mg Tablet.dr 40 Mg PO DAILY Lasix (Furosemide) 20 Mg Tablet 20 Mg PO DAILY SHANNON SIMMONS MD Aug 05, 2016 21:28
--- NOTE | 2016-08-05 21:53 | PN ---
DATE: 08/03/2016 PSYCHIATRIC PROGRESS NOTE This is late entry of 08/03/2016, covers elements not covered in my initial note. SUBJECTIVE: Per nursing report, the patient has been agitated in the morning, talked about having visions of a ____ the previous night. REVIEW OF SYSTEMS: Poor vision. No CV, , pulmonary, ENT system symptoms on review. MENTAL STATUS EXAMINATION: Reasonably oriented. Speech coherent, abstraction fair, computation impaired, somewhat labile in his mood, irritable, slightly paranoid. No suicidal or homicidal ideation. LABORATORY DATA: Reviewed. IMPRESSION: Major depressive disorder with psychotic features; anxiety disorder, unspecified; cognitive disorder, unspecified, Leon Bonnet syndrome. PLAN: Continue Wellbutrin XL 150 mg a day, Seroquel 25 mg at bedtime, Zyprexa p.r.n. Adjust as indicated. SHANNON SIMMONS MD DR: MERCEDES/maciej JOB#: [id number] / [id number]
--- NOTE | 2016-08-05 22:04 | PN ---
DATE: 08/04/2016 PSYCHIATRIC PROGRESS NOTE This is a late entry for 08/04/2016, covers elements not covered in my initial note. SUBJECTIVE: Per nursing report, the patient himself; otherwise, cooperative, somewhat anxious, paranoid. REVIEW OF SYSTEMS: Poor vision. No CV, , pulmonary, eye system symptoms on review. MENTAL STATUS EXAM: Oriented to himself and situation. Speech coherent, abstraction fair, computation impaired, language function intact. Attention span short. He minimizes any psychiatric problems. LABORATORY DATA: Reviewed. IMPRESSION: Major depressive disorder with psychotic features in partial remission; anxiety disorder, unspecified; impulse control disorder, unspecified; Leon Bonnet Syndrome; cognitive disorder, unspecified. PLAN: Increase Seroquel from 25 mg at bedtime to 37.5 mg at bedtime. Continue Wellbutrin along with Zyprexa p.r.n. SHANNON SIMMONS MD DR: MERCEDES/maciej JOB#: [id number] / [id number]
[2016-08-06 06:11] VITALS: BP 157/85
[2016-08-06] MEDS: PANTOPRAZOLE 40 MG TABLET. PO SCH (09:02)
[2016-08-06] MEDS: TAMSULOSIN 0.4 MG CAP.ER.24H. PO SCH ×2 (09:02→19:22)
[2016-08-06] MEDS: CARVEDILOL 6.25 MG TABLET PO SCH ×2 (09:02→19:23)
[2016-08-06] MEDS: CLOBETASOL 0.05% TP SCH ×2 (09:03→19:24)
[2016-08-06] MEDS: buPROPion XL 150 MG TAB.ER.24H PO SCH (09:03)
[2016-08-06] MEDS: FUROSEMIDE 20 MG TABLET PO SCH (09:03)
[2016-08-06] MEDS: PRENATAL MULTIVITAMIN TABLET. PO SCH (09:05)
[2016-08-06 15:27] VITALS: BP 152/82
[2016-08-06] MEDS: QUEtiapine 25 MG TABLET. PO SCH (19:22)
[2016-08-06] MEDS: MINERAL OIL/PETROLATUM TOPICAL CREAM 113GM JAR. TP SCH (19:24)
--- NOTE | 2016-08-06 21:01 | PDOC ---
Exam Mando Demential Exam: Mando Note: Please also refer to the separate dictated note~for this date of service dictated separately.~Patient seen individually. Discussed the patient with Nursing staff reviewed the chart.~Reviewed interim history and current functioning. Reviewed vital signs,~Labs/ Radiology~and current medications noted below. Continue current treatment with the changes noted in the dictated addendum note Assessment: Vital Signs: Vital Signs Date Time Temp Pulse Resp B/P Pulse Ox O2 Delivery O2 Flow Rate FiO2 08/06/16 19:23 85 152/82 08/06/16 15:27 97.9 17 96 08/06/16 06:11 Nasal [place] 2.0 I&O Intake and Output 08/06/16 07:00 Intake Total 1320 ml Balance 1320 ml Intake Oral 1320 ml Current Medications: Meds: Current Medications Acetaminophen (Tylenol) 650 mg PRN Q6HRS PRN PO PAIN / TEMP; Start 07/28/16 at 22:45; Stop 07/29/16 at 06:32; Status DC Multi-Ingredient Ointment (Analgesic [place]) 1 lyudmila PRN QID PRN TP MUSCLE PAIN; Start 07/28/16 at 22:45 Al Hydroxide/Mg Hydroxide (Mylanta Plus Xs) 15 ml PRN AFTMEALHC PRN PO DYSPEPSIA; Start 07/28/16 at 22:45; Stop 07/29/16 at 06:32; Status DC Magnesium Hydroxide (Milk Of Magnesia) 2,400 mg PRN QHS PRN PO CONSTIPATION; Start 07/28/16 at 22:45; Stop 07/29/16 at 06:32; Status DC Venlafaxine HCl (Effexor) 25 mg DAILY PO Depression Last administered on t 08:31; Start 07/29/16 at 09:00; Stop 07/29/16 at 18:31; Status DC Fluticasone Propionate (Flonase) 2 spray PRN DAILY PRN NS Nasal Congestion; Start 07/28/16 at 22:45 Olanzapine (Zyprexa Zydis) 1.25 mg PRN Q2HR PRN PO Psych; Start 07/28/16 at 22: 45 Acetaminophen (Tylenol) 650 mg PRN Q4HRS PRN PO PAIN / TEMP; Start 07/29/16 at 06:30 Acetaminophen (Tylenol) 650 mg PRN Q4HRS PRN RC PAIN / TEMP; Start 07/29/16 at 06:30 Albuterol Sulfate (Ventolin Hfa) 1 puff PRN Q4HRS PRN IH Dyspnea; Start at 06:30; Stop 07/29/16 at 07:22; Status DC Carvedilol (Coreg) 6.25 mg BIDWMEALS PO Last administered on 07/29/16 08:31; Start 07/29/16 at 08:00; Stop 07/29/16 at 10:49; Status DC Clobetasol Propionate (Temovate) 1 lyudmila BID TP Last administered on 08/06/16 19 :24; Start 07/29/16 at 09:00 Docusate Sodium (Colace) 100 mg PRN DAILY PRN PO CONSTIPATION; Start 07/29/16 at 06:30 Furosemide (Lasix) 20 mg DAILY PO Last administered on 08/06/16 09:03; Start 07/29/16 at 09:00 Magnesium Hydroxide (Milk Of Magnesia) 2,400 mg PRN QHS PRN PO CONSTIPATION; Start 07/29/16 at 06:30 Miconazole Nitrate (Desenex) 1 lyudmila PRN DAILY PRN TP ITCHING; Start 07/29/16 at 06:30; Stop 07/29/16 at 07:20; Status DC Multi-Ingred Cream/Lotion/Oil/ Oint (Hydrocerin) 1 lyudmila QHS TP Last administered on 08/06/16 19:24; Start 07/29/16 at 21:00 Pantoprazole Sodium (Protonix) 40 mg DAILYAC PO Last administered on 08/06/16 09:02; Start 07/29/16 at 07:30 Tamsulosin HCl (Flomax) 0.4 mg BID PO Last administered on 08/06/16 19:22; Start 07/29/16 at 09:00 Non-Formulary Medication 650 mg PRN Q4HRS PRN PO PAIN / TEMP; Start 07/29/16 at 06:30; Status UNV Artificial Tears (Artificial Tears) 2 drop PRN Q2HR PRN OU Artificial Eye Dryness; Start 07/29/16 at 06:30 Non-Formulary Medication 1 lyudmila PRN PRN TP CONGESTION; Start 07/29/16 at 06:30; Stop 07/29/16 at 07:24; Status DC Miconazole Nitrate (Monistat-Derm) 1 lyudmila PRN DAILY PRN TP ITCHING Last administered on 08/02/16 08:25; Start 07/29/16 at 07:30 Albuterol/ Ipratropium (Duoneb) 3 ml PRN Q4HRS PRN NEB SHORTNESS OF BREATH; Start 07/29/16 at 07:30 Carvedilol (Coreg) 6.25 mg Q12HR PO Last administered on 08/06/16 19:23; Start 07/29/16 at 21:00 Prenat Multivit/ [place]/Iron/Folic Ac (Multivitamin ) 1 tab DAILYWLUN PO Last administered on 08/06/16 09:05; Start 07/29/16 at 12:00 Bupropion HCl (Wellbutrin Xl) 150 mg DAILY PO Last administered on 08/06/16 09 :03; Start 07/30/16 at 09:00 Quetiapine Fumarate (SEROquel) 25 mg QHS PO Last administered on 08/04/16 19: 22; Start 08/02/16 at 21:00; Stop 08/05/16 at 10:04; Status DC Quetiapine Fumarate (SEROquel) 37.5 mg QHS PO Last administered on 08/06/16 19 :22; Start 08/05/16 at 21:00 Active Scripts Active Reported Lotrimin Af (Miconazole Nitrate) 90 Gm Powder 1 Lyudmila TP PRN PRN Artificial Tears Eye Drops (Dextran 70/Hypromellose) 15 Ml Drops 2 Drop LEFTEYE PRN Q2HR PRN Triamcinolone Acetonide 15 Gm Cream..g. 1 Lyudmila TP BID Clobetasol Propionate 15 Gm Cream..g. 1 Lyudmila TP BID Hydrocerin Cream (Mineral Oil/Petrolatum,White) 454 Gm Cream..g. 1 Lyudmila TP QHS Vicks Vaporub Ointment (Eucalyptus Oil/Menthol/Camphor) 50 Gm Oint...g. 1 Lyudmila TP PRN PRN Ra Saline Enema (Na Phos,M-B/Na Phos,Di-Ba) 133 Ml Enema 133 Ml RC PRN Q24HRS PRN Proventil Hfa Inhaler (Albuterol Sulfate) 6.7 Gm Hfa.aer.ad 1 Puff IH PRN Q4HRS PRN Alum-Mag Hydroxide-Simeth Liq (Mag Hydrox/Al Hydrox/Simeth) 360 Ml Oral.susp 30 Ml PO PRN Q2HR PRN Milk Of Magnesia (Magnesium Hydroxide) 400 Mg/5 Ml Oral.susp 2,400 Mg PO PRN QHS PRN Fluticasone Propionate Nasal [place] (Fluticasone Propionate) 16 Gm [place].susp 2 [place] NS PRN DAILY PRN Colace (Docusate Sodium) 100 Mg Capsule 100 Mg PO PRN DAILY PRN Acetaminophen 325 Mg Tablet 650 Mg PO PRN Q4HRS PRN Acetaminophen Supp (Acetaminophen) 650 Mg Supp.rect 650 Mg RC PRN Q4HRS PRN Acetaminophen 160 Mg/5 Ml Oral.susp 650 Mg PO PRN Q4HRS PRN Tamsulosin Hcl 0.4 Mg Cap.er.24h 0.4 Mg PO BID Carvedilol 6.25 Mg Tablet 6.25 Mg PO BIDWMEALS Venlafaxine Hcl 25 Mg Tablet 25 Mg PO DAILY Protonix (Pantoprazole Sodium) 40 Mg Tablet.dr 40 Mg PO DAILY Lasix (Furosemide) 20 Mg Tablet 20 Mg PO DAILY SHANNON SIMMONS MD Aug 06, 2016 21:01
--- NOTE | 2016-08-06 21:46 | PN ---
DATE: 08/05/2016 PSYCHIATRIC PROGRESS NOTE This is late entry of 08/05/2016, covers elements not covered in my initial note. SUBJECTIVE: Overall, the patient remains somewhat anxious, labile. Insight is limited into some of his mood lability and behaviors that prompted admission. REVIEW OF SYSTEMS: No CV, , pulmonary, eye, ENT system symptoms on review. MENTAL STATUS EXAMINATION: Reasonably oriented. Speech coherent, abstraction fair, computation impaired, language function intact. Mood and affect still somewhat anxious, labile, but improved. LABORATORY DATA: Reviewed. IMPRESSION: Unchanged from initial note. Major depressive disorder, rule out psychotic features; anxiety disorder, unspecified; impulse control disorder, unspecified. PLAN: Continue Wellbutrin, Seroquel along with Zyprexa p.r.n. MAN Kedar SIMMONS MD DR: MERCEDES/maciej JOB#: [id number] / [id number]
[2016-08-07 05:41] VITALS: BP 143/79
[2016-08-07] MEDS: PANTOPRAZOLE 40 MG TABLET. PO SCH (08:30)
[2016-08-07] MEDS: FUROSEMIDE 20 MG TABLET PO SCH (08:30)
[2016-08-07] MEDS: TAMSULOSIN 0.4 MG CAP.ER.24H. PO SCH ×2 (08:30→19:46)
[2016-08-07] MEDS: buPROPion XL 150 MG TAB.ER.24H PO SCH (08:31)
[2016-08-07] MEDS: CARVEDILOL 6.25 MG TABLET PO SCH ×2 (08:31→19:45)
[2016-08-07] MEDS: CLOBETASOL 0.05% TP SCH ×2 (08:32→19:50)
[2016-08-07] MEDS: PRENATAL MULTIVITAMIN TABLET. PO SCH (12:26)
[2016-08-07 15:19] VITALS: BP 141/77
[2016-08-07] MEDS: MINERAL OIL/PETROLATUM TOPICAL CREAM 113GM JAR. TP SCH (19:50)
[2016-08-07] MEDS: QUEtiapine 50 MG TABLET. PO SCH (19:50)
--- NOTE | 2016-08-07 19:58 | PN ---
DATE: 08/06/2016 PSYCHIATRIC PROGRESS NOTE This is late entry of 08/06/2016, covers elements not covered in my initial note. SUBJECTIVE: Overall, the patient has been fairly oriented, little anxious, did well, previous night, generally cooperative during the day on 08/06/2016. REVIEW OF SYSTEMS: Some impairment of ambulation. No CV, , pulmonary, eye system symptoms on review. MENTAL STATUS EXAMINATION: Oriented reasonably. Speech is coherent, has some latency. Abstraction fair, computation impaired, language function intact, attention span short. Mood and affect showing improvement and less lability. LABORATORY DATA: Reviewed. 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 Rest diagnoses unchanged. PLAN: Continue Wellbutrin XL 150 mg a day, Zyprexa p.r.n., Seroquel is 37.5 mg at bedtime, we will increase to 50 mg at bedtime. Adjust further as clinically indicated. SHANNON SIMMONS MD DR: MERCEDES/maciej JOB#: [id number] / [id number]
--- NOTE | 2016-08-07 21:03 | PDOC ---
Exam Mando Demential Exam: Mando Note: Please also refer to the separate dictated note~for this date of service dictated separately.~Patient seen individually. Discussed the patient with Nursing staff reviewed the chart.~Reviewed interim history and current functioning. Reviewed vital signs,~Labs/ Radiology~and current medications noted below. Continue current treatment with the changes noted in the dictated addendum note Assessment: Vital Signs: Vital Signs Date Time Temp Pulse Resp B/P Pulse Ox O2 Delivery O2 Flow Rate FiO2 08/07/16 19:45 82 141/77 08/07/16 15:19 97.6 18 95 08/06/16 06:11 Nasal Cannula 2.0 I&O Intake and Output 08/07/16 07:00 Intake Total 1080 ml Balance 1080 ml Intake Oral 1080 ml # Voids 1 Current Medications: Meds: Current Medications Acetaminophen (Tylenol) 650 mg PRN Q6HRS PRN PO PAIN / TEMP; Start 07/28/16 at 22:45; Stop 07/29/16 at 06:32; Status DC Multi-Ingredient Ointment (Analgesic [place]) 1 lyudmila PRN QID PRN TP MUSCLE PAIN; Start 07/28/16 at 22:45 Al Hydroxide/Mg Hydroxide (Mylanta Plus Xs) 15 ml PRN AFTMEALHC PRN PO DYSPEPSIA; Start 07/28/16 at 22:45; Stop 07/29/16 at 06:32; Status DC Magnesium Hydroxide (Milk Of Magnesia) 2,400 mg PRN QHS PRN PO CONSTIPATION; Start 07/28/16 at 22:45; Stop 07/29/16 at 06:32; Status DC Venlafaxine HCl (Effexor) 25 mg DAILY PO Depression Last administered on 08:31; Start 07/29/16 at 09:00; Stop 07/29/16 at 18:31; Status DC Fluticasone Propionate (Flonase) 2 spray PRN DAILY PRN NS Nasal Congestion Last administered on 08/07/16 06:24; Start 07/28/16 at 22:45 Olanzapine (Zyprexa Zydis) 1.25 mg PRN Q2HR PRN PO Psych; Start 07/28/16 at 22: 45 Acetaminophen (Tylenol) 650 mg PRN Q4HRS PRN PO PAIN / TEMP; Start 07/29/16 at 06:30 Acetaminophen (Tylenol) 650 mg PRN Q4HRS PRN RC PAIN / TEMP; Start 07/29/16 at 06:30 Albuterol Sulfate (Ventolin Hfa) 1 puff PRN Q4HRS PRN IH Dyspnea; Start at 06:30; Stop 07/29/16 at 07:22; Status DC Carvedilol (Coreg) 6.25 mg BIDWMEALS PO Last administered on 07/29/16 08:31; Start 07/29/16 at 08:00; Stop 07/29/16 at 10:49; Status DC Clobetasol Propionate (Temovate) 1 lyudmila BID TP Last administered on 08/07/16 19 :50; Start 07/29/16 at 09:00 Docusate Sodium (Colace) 100 mg PRN DAILY PRN PO CONSTIPATION; Start 07/29/16 at 06:30 Furosemide (Lasix) 20 mg DAILY PO Last administered on 08/07/16 08:30; Start 07/29/16 at 09:00 Magnesium Hydroxide (Milk Of Magnesia) 2,400 mg PRN QHS PRN PO CONSTIPATION; Start 07/29/16 at 06:30 Miconazole Nitrate (Desenex) 1 lyudmila PRN DAILY PRN TP ITCHING; Start 07/29/16 at 06:30; Stop 07/29/16 at 07:20; Status DC Multi-Ingred Cream/Lotion/Oil/ Oint (Hydrocerin) 1 lyudmila QHS TP Last administered on 08/07/16 19:50; Start 07/29/16 at 21:00 Pantoprazole Sodium (Protonix) 40 mg DAILYAC PO Last administered on 08/07/16 08:30; Start 07/29/16 at 07:30 Tamsulosin HCl (Flomax) 0.4 mg BID PO Last administered on 08/07/16 19:46; Start 07/29/16 at 09:00 Non-Formulary Medication 650 mg PRN Q4HRS PRN PO PAIN / TEMP; Start 07/29/16 at 06:30; Status UNV Artificial Tears (Artificial Tears) 2 drop PRN Q2HR PRN OU Artificial Eye Dryness; Start 07/29/16 at 06:30 Non-Formulary Medication 1 lyudmila PRN PRN TP CONGESTION; Start 07/29/16 at 06:30; Stop 07/29/16 at 07:24; Status DC Miconazole Nitrate (Monistat-Derm) 1 lyudmila PRN DAILY PRN TP ITCHING Last administered on 08/02/16 08:25; Start 07/29/16 at 07:30 Albuterol/ Ipratropium (Duoneb) 3 ml PRN Q4HRS PRN NEB SHORTNESS OF BREATH; Start 07/29/16 at 07:30 Carvedilol (Coreg) 6.25 mg Q12HR PO Last administered on 08/07/16 19:45; Start 07/29/16 at 21:00 Prenat Multivit/ [place]/Iron/Folic Ac (Multivitamin ) 1 tab DAILYWLUN PO Last administered on 08/07/16 12:26; Start 07/29/16 at 12:00 Bupropion HCl (Wellbutrin Xl) 150 mg DAILY PO Last administered on 08/07/16 08 :31; Start 07/30/16 at 09:00 Quetiapine Fumarate (SEROquel) 25 mg QHS PO Last administered on 08/04/16 19: 22; Start 08/02/16 at 21:00; Stop 08/05/16 at 10:04; Status DC Quetiapine Fumarate (SEROquel) 37.5 mg QHS PO Last administered on 08/06/16 19 :22; Start 08/05/16 at 21:00; Stop 08/07/16 at 16:14; Status DC Quetiapine Fumarate (SEROquel) 50 mg QHS PO Last administered on 08/07/16 19: 50; Start 08/07/16 at 21:00 Active Scripts Active Reported Lotrimin Af (Miconazole Nitrate) 90 Gm Powder 1 Lyudmila TP PRN PRN Artificial Tears Eye Drops (Dextran 70/Hypromellose) 15 Ml Drops 2 Drop LEFTEYE PRN Q2HR PRN Triamcinolone Acetonide 15 Gm Cream..g. 1 Lyudmila TP BID Clobetasol Propionate 15 Gm Cream..g. 1 Lyudmila TP BID Hydrocerin Cream (Mineral Oil/Petrolatum,White) 454 Gm Cream..g. 1 Lyudmila TP QHS Vicks Vaporub Ointment (Eucalyptus Oil/Menthol/Camphor) 50 Gm Oint...g. 1 Lyudmila TP PRN PRN Ra Saline Enema (Na Phos,M-B/Na Phos,Di-Ba) 133 Ml Enema 133 Ml RC PRN Q24HRS PRN Proventil Hfa Inhaler (Albuterol Sulfate) 6.7 Gm Hfa.aer.ad 1 Puff IH PRN Q4HRS PRN Alum-Mag Hydroxide-Simeth Liq (Mag Hydrox/Al Hydrox/Simeth) 360 Ml Oral.susp 30 Ml PO PRN Q2HR PRN Milk Of Magnesia (Magnesium Hydroxide) 400 Mg/5 Ml Oral.susp 2,400 Mg PO PRN QHS PRN Fluticasone Propionate Nasal [place] (Fluticasone Propionate) 16 Gm [place].susp 2 [place] NS PRN DAILY PRN Colace (Docusate Sodium) 100 Mg Capsule 100 Mg PO PRN DAILY PRN Acetaminophen 325 Mg Tablet 650 Mg PO PRN Q4HRS PRN Acetaminophen Supp (Acetaminophen) 650 Mg Supp.rect 650 Mg RC PRN Q4HRS PRN Acetaminophen 160 Mg/5 Ml Oral.susp 650 Mg PO PRN Q4HRS PRN Tamsulosin Hcl 0.4 Mg Cap.er.24h 0.4 Mg PO BID Carvedilol 6.25 Mg Tablet 6.25 Mg PO BIDWMEALS Venlafaxine Hcl 25 Mg Tablet 25 Mg PO DAILY Protonix (Pantoprazole Sodium) 40 Mg Tablet.dr 40 Mg PO DAILY Lasix (Furosemide) 20 Mg Tablet 20 Mg PO DAILY SHANNON SIMMONS MD Aug 07, 2016 21:03
[2016-08-08 07:15] VITALS: BP 131/79
[2016-08-08] MEDS: PANTOPRAZOLE 40 MG TABLET. PO SCH (07:30)
[2016-08-08] MEDS: TAMSULOSIN 0.4 MG CAP.ER.24H. PO SCH ×2 (08:22→20:30)
[2016-08-08] MEDS: FUROSEMIDE 20 MG TABLET PO SCH (08:22)
[2016-08-08] MEDS: CARVEDILOL 6.25 MG TABLET PO SCH ×2 (08:22→20:33)
[2016-08-08] MEDS: CLOBETASOL 0.05% TP SCH ×2 (08:23→20:33)
[2016-08-08] MEDS: buPROPion XL 150 MG TAB.ER.24H PO SCH (08:23)
[2016-08-08] MEDS: PRENATAL MULTIVITAMIN TABLET. PO SCH (11:59)
[2016-08-08 16:17] VITALS: BP 180/86
--- NOTE | 2016-08-08 20:29 | PN ---
DATE: 08/07/2016 PSYCHIATRIC PROGRESS NOTE This is late entry of 08/07/2016, covers elements not covered in my initial note. SUBJECTIVE: The patient has been quiet, somewhat withdrawn, but appropriate, not aggressive, stays to himself, alert, oriented to time, place and situation. REVIEW OF SYSTEMS: No CV, , pulmonary, eye, ENT system symptoms on review. MENTAL STATUS EXAMINATION: Reasonably oriented. Speech has some latency, coherent, a little anxious. Abstraction fair, computation impaired, language function intact. Mood and affect still somewhat withdrawn. LABORATORY DATA: Reviewed. IMPRESSION: Unchanged from initial note. PLAN: Continue current psychotropics mentioned in my initial note, may need to increase Seroquel further, but it was recently increased to 50 mg at bedtime. We will maintain it at that for now. MAN Kedar SIMMONS MD DR: MRECEDES/maciej JOB#: [id number] / [id number]
[2016-08-08] MEDS: MINERAL OIL/PETROLATUM TOPICAL CREAM 113GM JAR. TP SCH (20:30)
[2016-08-08] MEDS: MICONAZOLE NITRATE 2% TOPICAL CREAM 28GM TUBE. TP PRN (20:33)
[2016-08-08] MEDS: QUEtiapine 50 MG TABLET. PO SCH (20:33)
--- NOTE | 2016-08-08 21:03 | PDOC ---
Exam Mando Demential Exam: Mando Note: Please also refer to the separate dictated note~for this date of service dictated separately.~Patient seen individually. Discussed the patient with Nursing staff reviewed the chart.~Reviewed interim history and current functioning. Reviewed vital signs,~Labs/ Radiology~and current medications noted below. Continue current treatment with the changes noted in the dictated addendum note Assessment: Vital Signs: Vital Signs Date Time Temp Pulse Resp B/P Pulse Ox O2 Delivery O2 Flow Rate FiO2 08/08/16 20:33 81 180/86 08/08/16 16:17 97.8 18 97 08/06/16 06:11 Nasal Cannula 2.0 I&O Intake and Output 08/08/16 07:00 Intake Total 1080 ml Balance 1080 ml Intake Oral 1080 ml # Bowel Movements 1 Current Medications: Meds: Current Medications Acetaminophen (Tylenol) 650 mg PRN Q6HRS PRN PO PAIN / TEMP; Start 07/28/16 at 22:45; Stop 07/29/16 at 06:32; Status DC Multi-Ingredient Ointment (Analgesic [place]) 1 lyudmila PRN QID PRN TP MUSCLE PAIN; Start 07/28/16 at 22:45 Al Hydroxide/Mg Hydroxide (Mylanta Plus Xs) 15 ml PRN AFTMEALHC PRN PO DYSPEPSIA; Start 07/28/16 at 22:45; Stop 07/29/16 at 06:32; Status DC Magnesium Hydroxide (Milk Of Magnesia) 2,400 mg PRN QHS PRN PO CONSTIPATION; Start 07/28/16 at 22:45; Stop 07/29/16 at 06:32; Status DC Venlafaxine HCl (Effexor) 25 mg DAILY PO Depression Last administered on 08:31; Start 07/29/16 at 09:00; Stop 07/29/16 at 18:31; Status DC Fluticasone Propionate (Flonase) 2 spray PRN DAILY PRN NS Nasal Congestion Last administered on 08/07/16 06:24; Start 07/28/16 at 22:45 Olanzapine (Zyprexa Zydis) 1.25 mg PRN Q2HR PRN PO Psych; Start 07/28/16 at 22: 45 Acetaminophen (Tylenol) 650 mg PRN Q4HRS PRN PO PAIN / TEMP; Start 07/29/16 at 06:30 Acetaminophen (Tylenol) 650 mg PRN Q4HRS PRN RC PAIN / TEMP; Start 07/29/16 at 06:30 Albuterol Sulfate (Ventolin Hfa) 1 puff PRN Q4HRS PRN IH Dyspnea; Start at 06:30; Stop 07/29/16 at 07:22; Status DC Carvedilol (Coreg) 6.25 mg BIDWMEALS PO Last administered on 07/29/16 08:31; Start 07/29/16 at 08:00; Stop 07/29/16 at 10:49; Status DC Clobetasol Propionate (Temovate) 1 lyudmila BID TP Last administered on 08/08/16 20 :33; Start 07/29/16 at 09:00 Docusate Sodium (Colace) 100 mg PRN DAILY PRN PO CONSTIPATION; Start 07/29/16 at 06:30 Furosemide (Lasix) 20 mg DAILY PO Last administered on 08/08/16 08:22; Start 07/29/16 at 09:00 Magnesium Hydroxide (Milk Of Magnesia) 2,400 mg PRN QHS PRN PO CONSTIPATION; Start 07/29/16 at 06:30 Miconazole Nitrate (Desenex) 1 lyudmila PRN DAILY PRN TP ITCHING; Start 07/29/16 at 06:30; Stop 07/29/16 at 07:20; Status DC Multi-Ingred Cream/Lotion/Oil/ Oint (Hydrocerin) 1 lyudmila QHS TP Last administered on 08/07/16 19:50; Start 07/29/16 at 21:00 Pantoprazole Sodium (Protonix) 40 mg DAILYAC PO Last administered on 08/08/16 07:30; Start 07/29/16 at 07:30 Tamsulosin HCl (Flomax) 0.4 mg BID PO Last administered on 08/08/16 20:30; Start 07/29/16 at 09:00 Non-Formulary Medication 650 mg PRN Q4HRS PRN PO PAIN / TEMP; Start 07/29/16 at 06:30; Status UNV Artificial Tears (Artificial Tears) 2 drop PRN Q2HR PRN OU Artificial Eye Dryness; Start 07/29/16 at 06:30 Non-Formulary Medication 1 lyudmila PRN PRN TP CONGESTION; Start 07/29/16 at 06:30; Stop 07/29/16 at 07:24; Status DC Miconazole Nitrate (Monistat-Derm) 1 lyudmila PRN DAILY PRN TP ITCHING Last administered on 08/08/16 20:33; Start 07/29/16 at 07:30 Albuterol/ Ipratropium (Duoneb) 3 ml PRN Q4HRS PRN NEB SHORTNESS OF BREATH; Start 07/29/16 at 07:30 Carvedilol (Coreg) 6.25 mg Q12HR PO Last administered on 08/08/16 20:33; Start 07/29/16 at 21:00 Prenat Multivit/ [place]/Iron/Folic Ac (Multivitamin ) 1 tab DAILYWLUN PO Last administered on 08/08/16 11:59; Start 07/29/16 at 12:00 Bupropion HCl (Wellbutrin Xl) 150 mg DAILY PO Last administered on 08/08/16 08 :23; Start 07/30/16 at 09:00 Quetiapine Fumarate (SEROquel) 25 mg QHS PO Last administered on 08/04/16 19: 22; Start 08/02/16 at 21:00; Stop 08/05/16 at 10:04; Status DC Quetiapine Fumarate (SEROquel) 37.5 mg QHS PO Last administered on 08/06/16 19 :22; Start 08/05/16 at 21:00; Stop 08/07/16 at 16:14; Status DC Quetiapine Fumarate (SEROquel) 50 mg QHS PO Last administered on 08/08/16 20: 33; Start 08/07/16 at 21:00 Active Scripts Active Reported Lotrimin Af (Miconazole Nitrate) 90 Gm Powder 1 Lyudmila TP PRN PRN Artificial Tears Eye Drops (Dextran 70/Hypromellose) 15 Ml Drops 2 Drop LEFTEYE PRN Q2HR PRN Triamcinolone Acetonide 15 Gm Cream..g. 1 Lyudmila TP BID Clobetasol Propionate 15 Gm Cream..g. 1 Lyudmila TP BID Hydrocerin Cream (Mineral Oil/Petrolatum,White) 454 Gm Cream..g. 1 Lyudmila TP QHS Vicks Vaporub Ointment (Eucalyptus Oil/Menthol/Camphor) 50 Gm Oint...g. 1 Lyudmila TP PRN PRN Ra Saline Enema (Na Phos,M-B/Na Phos,Di-Ba) 133 Ml Enema 133 Ml RC PRN Q24HRS PRN Proventil Hfa Inhaler (Albuterol Sulfate) 6.7 Gm Hfa.aer.ad 1 Puff IH PRN Q4HRS PRN Alum-Mag Hydroxide-Simeth Liq (Mag Hydrox/Al Hydrox/Simeth) 360 Ml Oral.susp 30 Ml PO PRN Q2HR PRN Milk Of Magnesia (Magnesium Hydroxide) 400 Mg/5 Ml Oral.susp 2,400 Mg PO PRN QHS PRN Fluticasone Propionate Nasal [place] (Fluticasone Propionate) 16 Gm [place].susp 2 [place] NS PRN DAILY PRN Colace (Docusate Sodium) 100 Mg Capsule 100 Mg PO PRN DAILY PRN Acetaminophen 325 Mg Tablet 650 Mg PO PRN Q4HRS PRN Acetaminophen Supp (Acetaminophen) 650 Mg Supp.rect 650 Mg RC PRN Q4HRS PRN Acetaminophen 160 Mg/5 Ml Oral.susp 650 Mg PO PRN Q4HRS PRN Tamsulosin Hcl 0.4 Mg Cap.er.24h 0.4 Mg PO BID Carvedilol 6.25 Mg Tablet 6.25 Mg PO BIDWMEALS Venlafaxine Hcl 25 Mg Tablet 25 Mg PO DAILY Protonix (Pantoprazole Sodium) 40 Mg Tablet.dr 40 Mg PO DAILY Lasix (Furosemide) 20 Mg Tablet 20 Mg PO DAILY SHANNON SIMMONS MD Aug 08, 2016 21:03
[2016-08-09 05:53] VITALS: BP 128/79
[2016-08-09 06:53] LABS: BASO # 0.1 x10^3/uL (0.0-0.2); BASO % 1 % (0-3); EOS # 0.4 x10^3/uL (0.0-0.7); EOS % 5 % (0-3); HEMATOCRIT 38.4 % (39.0-53.0); HEMOGLOBIN 12.5 g/dL (13.0-17.5); LYMPH # 1.4 x10^3/uL (1.0-4.8); LYMPH % 19 % (24-48); MEAN CORPUSCULAR HEMOGLOBIN 29 pg (25-35); MEAN CORPUSCULAR HGB CONC 33 g/dL (31-37); MEAN CORPUSCULAR VOLUME 88 fL (79-100); MONO # 0.8 x10^3/uL (0.0-1.1); MONO % 10 % (0-9); NEUT # 4.9 x10^3uL (1.8-7.7); NEUT % 65 % (31-73); PLATELET COUNT 125 x10^3/uL (140-400); RED BLOOD COUNT 4.34 x10^6/uL (4.30-5.70); RED CELL DISTRIBUTION WIDTH 14.8 % (11.5-14.5); WHITE BLOOD COUNT 7.5 x10^3/uL (4.0-11.0)
[2016-08-09 07:07] LABS: ALBUMIN 3.1 g/dL (3.4-5.0); ALBUMIN/GLOBULIN RATIO 0.8 (1.0-1.7); CALCIUM 8.7 mg/dL (8.5-10.1); GFR 31.8; POTASSIUM 4.1 mmol/L (3.5-5.1); TOTAL BILIRUBIN 0.4 mg/dL (0.2-1.0); TOTAL PROTEIN 6.8 g/dL (6.4-8.2)
[2016-08-09] MEDS: FUROSEMIDE 20 MG TABLET PO SCH (08:12)
[2016-08-09] MEDS: TAMSULOSIN 0.4 MG CAP.ER.24H. PO SCH ×2 (08:12→19:21)
[2016-08-09] MEDS: PANTOPRAZOLE 40 MG TABLET. PO SCH (08:12)
[2016-08-09] MEDS: buPROPion XL 150 MG TAB.ER.24H PO SCH (08:12)
[2016-08-09] MEDS: CARVEDILOL 6.25 MG TABLET PO SCH ×2 (08:13→19:21)
[2016-08-09] MEDS: CLOBETASOL 0.05% TP SCH ×2 (10:19→21:59)
[2016-08-09] MEDS: PRENATAL MULTIVITAMIN TABLET. PO SCH (13:50)
[2016-08-09 15:40] VITALS: BP 140/83
[2016-08-09] MEDS: QUEtiapine 50 MG TABLET. PO SCH (19:21)
[2016-08-09] MEDS: MICONAZOLE NITRATE 2% TOPICAL CREAM 28GM TUBE. TP PRN (19:22)
--- NOTE | 2016-08-09 21:07 | PDOC ---
Exam Mando Demential Exam: Mando Note: Please also refer to the separate dictated note~for this date of service dictated separately.~Patient seen individually. Discussed the patient with Nursing staff reviewed the chart.~Reviewed interim history and current functioning. Reviewed vital signs,~Labs/ Radiology~and current medications noted below. Continue current treatment with the changes noted in the dictated addendum note Assessment: Vital Signs: Vital Signs Date Time Temp Pulse Resp B/P Pulse Ox O2 Delivery O2 Flow Rate FiO2 08/09/16 19:21 70 140/83 08/09/16 15:40 98.3 18 94 08/06/16 06:11 Nasal Cannula 2.0 I&O Intake and Output 08/09/16 07:00 Intake Total 1320 ml Balance 1320 ml Intake Oral 1320 ml Labs: Laboratory Tests Test 08/09/16 06:24 White Blood Count 7.5x10^3/uL (4.0-11.0) Red Blood Count 4.34x10^6/uL (4.30-5.70) Hemoglobin 12.5g/dL (13.0-17.5) L Hematocrit 38.4% (39.0-53.0) L Mean Corpuscular Volume 88fL (79-100) Mean Corpuscular Hemoglobin 29pg (25-35) Mean Corpuscular Hemoglobin Concent 33g/dL (31-37) Red Cell Distribution Width 14.8% (11.5-14.5) H Platelet Count 125x10^3/uL (140-400) L Neutrophils (%) (Auto) 65% (31-73) Lymphocytes (%) (Auto) 19% (24-48) L Monocytes (%) (Auto) 10% (0-9) H Eosinophils (%) (Auto) 5% (0-3) H Basophils (%) (Auto) 1% (0-3) Neutrophils # (Auto) 4.9x10^3uL (1.8-7.7) Lymphocytes # (Auto) 1.4x10^3/uL (1.0-4.8) Monocytes # (Auto) 0.8x10^3/uL (0.0-1.1) Eosinophils # (Auto) 0.4x10^3/uL (0.0-0.7) Basophils # (Auto) 0.1x10^3/uL (0.0-0.2) Sodium Level 144mmol/L (136-145) Potassium Level 4.1mmol/L (3.5-5.1) Chloride Level 108mmol/L (98-107) H Carbon Dioxide Level 27mmol/L (21-32) Anion Gap 9 (6-14) Blood Urea Nitrogen 32mg/dL (8-26) H Creatinine 2.0mg/dL (0.7-1.3) H Estimated GFR (Cockcroft-Gault) 31.8 BUN/Creatinine Ratio 16 (6-20) Glucose Level 104mg/dL (70-99) H Calcium Level 8.7mg/dL (8.5-10.1) Total Bilirubin 0.4mg/dL (0.2-1.0) Aspartate Amino Transferase (AST) 14U/L (15-37) L Alanine Aminotransferase (ALT) 17U/L (16-63) Alkaline Phosphatase 66U/L (46-116) Total Protein 6.8g/dL (6.4-8.2) Albumin 3.1g/dL (3.4-5.0) L Albumin/Globulin Ratio 0.8 (1.0-1.7) L Current Medications: Meds: Current Medications Acetaminophen (Tylenol) 650 mg PRN Q6HRS PRN PO PAIN / TEMP; Start 07/28/16 at 22:45; Stop 07/29/16 at 06:32; Status DC Multi-Ingredient Ointment (Analgesic [place]) 1 lyudmila PRN QID PRN TP MUSCLE PAIN; Start 07/28/16 at 22:45 Al Hydroxide/Mg Hydroxide (Mylanta Plus Xs) 15 ml PRN AFTMEALHC PRN PO DYSPEPSIA; Start 07/28/16 at 22:45; Stop 07/29/16 at 06:32; Status DC Magnesium Hydroxide (Milk Of Magnesia) 2,400 mg PRN QHS PRN PO CONSTIPATION; Start 07/28/16 at 22:45; Stop 07/29/16 at 06:32; Status DC Venlafaxine HCl (Effexor) 25 mg DAILY PO Depression Last administered on t 08:31; Start 07/29/16 at 09:00; Stop 07/29/16 at 18:31; Status DC Fluticasone Propionate (Flonase) 2 spray PRN DAILY PRN NS Nasal Congestion Last administered on 08/07/16 06:24; Start 07/28/16 at 22:45 Olanzapine (Zyprexa Zydis) 1.25 mg PRN Q2HR PRN PO Psych; Start 07/28/16 at 22: 45 Acetaminophen (Tylenol) 650 mg PRN Q4HRS PRN PO PAIN / TEMP; Start 07/29/16 at 06:30 Acetaminophen (Tylenol) 650 mg PRN Q4HRS PRN RC PAIN / TEMP; Start 07/29/16 at 06:30 Albuterol Sulfate (Ventolin Hfa) 1 puff PRN Q4HRS PRN IH Dyspnea; Start at 06:30; Stop 07/29/16 at 07:22; Status DC Carvedilol (Coreg) 6.25 mg BIDWMEALS PO Last administered on 07/29/16 08:31; Start 07/29/16 at 08:00; Stop 07/29/16 at 10:49; Status DC Clobetasol Propionate (Temovate) 1 lyudmila BID TP Last administered on 08/09/16 10 :19; Start 07/29/16 at 09:00 Docusate Sodium (Colace) 100 mg PRN DAILY PRN PO CONSTIPATION; Start 07/29/16 at 06:30 Furosemide (Lasix) 20 mg DAILY PO Last administered on 08/09/16 08:12; Start 07/29/16 at 09:00 Magnesium Hydroxide (Milk Of Magnesia) 2,400 mg PRN QHS PRN PO CONSTIPATION; Start 07/29/16 at 06:30 Miconazole Nitrate (Desenex) 1 lyudmila PRN DAILY PRN TP ITCHING; Start 07/29/16 at 06:30; Stop 07/29/16 at 07:20; Status DC Multi-Ingred Cream/Lotion/Oil/ Oint (Hydrocerin) 1 lyudmila QHS TP Last administered on 08/07/16 19:50; Start 07/29/16 at 21:00 Pantoprazole Sodium (Protonix) 40 mg DAILYAC PO Last administered on 08/09/16 08:12; Start 07/29/16 at 07:30 Tamsulosin HCl (Flomax) 0.4 mg BID PO Last administered on 08/09/16 19:21; Start 07/29/16 at 09:00 Non-Formulary Medication 650 mg PRN Q4HRS PRN PO PAIN / TEMP; Start 07/29/16 at 06:30; Status UNV Artificial Tears (Artificial Tears) 2 drop PRN Q2HR PRN OU Artificial Eye Dryness; Start 07/29/16 at 06:30 Non-Formulary Medication 1 lyudmila PRN PRN TP CONGESTION; Start 07/29/16 at 06:30; Stop 07/29/16 at 07:24; Status DC Miconazole Nitrate (Monistat-Derm) 1 lyudmila PRN DAILY PRN TP ITCHING Last administered on 08/09/16 19:22; Start 07/29/16 at 07:30 Albuterol/ Ipratropium (Duoneb) 3 ml PRN Q4HRS PRN NEB SHORTNESS OF BREATH; Start 07/29/16 at 07:30 Carvedilol (Coreg) 6.25 mg Q12HR PO Last administered on 08/09/16 19:21; Start 07/29/16 at 21:00 Prenat Multivit/ [employer]/Iron/Folic Ac (Multivitamin ) 1 tab DAILYWLUN PO Last administered on 08/09/16 13:50; Start 07/29/16 at 12:00 Bupropion HCl (Wellbutrin Xl) 150 mg DAILY PO Last administered on 08/09/16 08 :12; Start 07/30/16 at 09:00 Quetiapine Fumarate (SEROquel) 25 mg QHS PO Last administered on 08/04/16 19: 22; Start 08/02/16 at 21:00; Stop 08/05/16 at 10:04; Status DC Quetiapine Fumarate (SEROquel) 37.5 mg QHS PO Last administered on 08/06/16 19 :22; Start 08/05/16 at 21:00; Stop 08/07/16 at 16:14; Status DC Quetiapine Fumarate (SEROquel) 50 mg QHS PO Last administered on 08/09/16 19: 21; Start 08/07/16 at 21:00 Active Scripts Active Reported Lotrimin Af (Miconazole Nitrate) 90 Gm Powder 1 [place] TP PRN PRN Artificial Tears Eye Drops (Dextran 70/Hypromellose) 15 Ml Drops 2 Drop LEFTEYE PRN Q2HR PRN Triamcinolone Acetonide 15 Gm Cream..g. 1 Lyudmila TP BID Clobetasol Propionate 15 Gm Cream..g. 1 Lyudmila TP BID Hydrocerin Cream (Mineral Oil/Petrolatum,White) 454 Gm Cream..g. 1 Lyudmila TP QHS Vicks Vaporub Ointment (Eucalyptus Oil/Menthol/Camphor) 50 Gm Oint...g. 1 Lyudmila TP PRN PRN Ra Saline Enema (Na Phos,M-B/Na Phos,Di-Ba) 133 Ml Enema 133 Ml RC PRN Q24HRS PRN Proventil Hfa Inhaler (Albuterol Sulfate) 6.7 Gm Hfa.aer.ad 1 Puff IH PRN Q4HRS PRN Alum-Mag Hydroxide-Simeth Liq (Mag Hydrox/Al Hydrox/Simeth) 360 Ml Oral.susp 30 Ml PO PRN Q2HR PRN Milk Of Magnesia (Magnesium Hydroxide) 400 Mg/5 Ml Oral.susp 2,400 Mg PO PRN QHS PRN Fluticasone Propionate Nasal [place] (Fluticasone Propionate) 16 Gm [place].susp 2 [place] NS PRN DAILY PRN Colace (Docusate Sodium) 100 Mg Capsule 100 Mg PO PRN DAILY PRN Acetaminophen 325 Mg Tablet 650 Mg PO PRN Q4HRS PRN Acetaminophen Supp (Acetaminophen) 650 Mg Supp.rect 650 Mg RC PRN Q4HRS PRN Acetaminophen 160 Mg/5 Ml Oral.susp 650 Mg PO PRN Q4HRS PRN Tamsulosin Hcl 0.4 Mg Cap.er.24h 0.4 Mg PO BID Carvedilol 6.25 Mg Tablet 6.25 Mg PO BIDWMEALS Venlafaxine Hcl 25 Mg Tablet 25 Mg PO DAILY Protonix (Pantoprazole Sodium) 40 Mg Tablet.dr 40 Mg PO DAILY Lasix (Furosemide) 20 Mg Tablet 20 Mg PO DAILY SHANNON SIMMONS MD Aug 09, 2016 21:07
[2016-08-09] MEDS: MINERAL OIL/PETROLATUM TOPICAL CREAM 113GM JAR. TP SCH (21:30)
[2016-08-10 05:42] VITALS: BP 155/81
[2016-08-10] MEDS: CLOBETASOL 0.05% TP SCH ×2 (07:51→22:36)
[2016-08-10] MEDS: CARVEDILOL 6.25 MG TABLET PO SCH ×2 (07:52→22:34)
[2016-08-10] MEDS: buPROPion XL 150 MG TAB.ER.24H PO SCH (07:52)
[2016-08-10] MEDS: PANTOPRAZOLE 40 MG TABLET. PO SCH (07:52)
[2016-08-10] MEDS: FUROSEMIDE 20 MG TABLET PO SCH (07:53)
[2016-08-10] MEDS: TAMSULOSIN 0.4 MG CAP.ER.24H. PO SCH ×2 (07:53→22:35)
[2016-08-10] MEDS: PRENATAL MULTIVITAMIN TABLET. PO SCH (11:52)
[2016-08-10 15:26] VITALS: BP 154/77
--- NOTE | 2016-08-10 21:00 | PDOC ---
Exam Mando Demential Exam: Mando Note: Please also refer to the separate dictated note~for this date of service dictated separately.~Patient seen individually. Discussed the patient with Nursing staff reviewed the chart.~Reviewed interim history and current functioning. Reviewed vital signs,~Labs/ Radiology~and current medications noted below. Continue current treatment with the changes noted in the dictated addendum note Assessment: Vital Signs: Vital Signs Date Time Temp Pulse Resp B/P Pulse Ox O2 Delivery O2 Flow Rate FiO2 08/10/16 15:26 98.4 72 20 154/77 95 08/06/16 06:11 Nasal Cannula 2.0 I&O Intake and Output 08/10/16 07:00 Intake Total 1440 ml Balance 1440 ml Intake Oral 1440 ml Current Medications: Meds: Current Medications Acetaminophen (Tylenol) 650 mg PRN Q6HRS PRN PO PAIN / TEMP; Start 07/28/16 at 22:45; Stop 07/29/16 at 06:32; Status DC Multi-Ingredient Ointment (Analgesic [place]) 1 lyudmila PRN QID PRN TP MUSCLE PAIN; Start 07/28/16 at 22:45 Al Hydroxide/Mg Hydroxide (Mylanta Plus Xs) 15 ml PRN AFTMEALHC PRN PO DYSPEPSIA; Start 07/28/16 at 22:45; Stop 07/29/16 at 06:32; Status DC Magnesium Hydroxide (Milk Of Magnesia) 2,400 mg PRN QHS PRN PO CONSTIPATION; Start 07/28/16 at 22:45; Stop 07/29/16 at 06:32; Status DC Venlafaxine HCl (Effexor) 25 mg DAILY PO Depression Last administered on 08:31; Start 07/29/16 at 09:00; Stop 07/29/16 at 18:31; Status DC Fluticasone Propionate (Flonase) 2 spray PRN DAILY PRN NS Nasal Congestion Last administered on 08/07/16 06:24; Start 07/28/16 at 22:45 Olanzapine (Zyprexa Zydis) 1.25 mg PRN Q2HR PRN PO Psych; Start 07/28/16 at 22: 45 Acetaminophen (Tylenol) 650 mg PRN Q4HRS PRN PO PAIN / TEMP; Start 07/29/16 at 06:30 Acetaminophen (Tylenol) 650 mg PRN Q4HRS PRN RC PAIN / TEMP; Start 07/29/16 at 06:30 Albuterol Sulfate (Ventolin Hfa) 1 puff PRN Q4HRS PRN IH Dyspnea; Start at 06:30; Stop 07/29/16 at 07:22; Status DC Carvedilol (Coreg) 6.25 mg BIDWMEALS PO Last administered on 07/29/16 08:31; Start 07/29/16 at 08:00; Stop 07/29/16 at 10:49; Status DC Clobetasol Propionate (Temovate) 1 lyudmila BID TP Last administered on 08/10/16 07 :51; Start 07/29/16 at 09:00 Docusate Sodium (Colace) 100 mg PRN DAILY PRN PO CONSTIPATION Last administered on 08/10/16 07:52; Start 07/29/16 at 06:30 Furosemide (Lasix) 20 mg DAILY PO Last administered on 08/10/16 07:53; Start 07/29/16 at 09:00 Magnesium Hydroxide (Milk Of Magnesia) 2,400 mg PRN QHS PRN PO CONSTIPATION; Start 07/29/16 at 06:30 Miconazole Nitrate (Desenex) 1 lyudmila PRN DAILY PRN TP ITCHING; Start 07/29/16 at 06:30; Stop 07/29/16 at 07:20; Status DC Multi-Ingred Cream/Lotion/Oil/ Oint (Hydrocerin) 1 lyudmila QHS TP Last administered on 08/09/16 21:30; Start 07/29/16 at 21:00 Pantoprazole Sodium (Protonix) 40 mg DAILYAC PO Last administered on 08/10/16 07:52; Start 07/29/16 at 07:30 Tamsulosin HCl (Flomax) 0.4 mg BID PO Last administered on 08/10/16 07:53; Start 07/29/16 at 09:00 Non-Formulary Medication 650 mg PRN Q4HRS PRN PO PAIN / TEMP; Start 07/29/16 at 06:30; Status UNV Artificial Tears (Artificial Tears) 2 drop PRN Q2HR PRN OU Artificial Eye Dryness; Start 07/29/16 at 06:30 Non-Formulary Medication 1 lyudmila PRN PRN TP CONGESTION; Start 07/29/16 at 06:30; Stop 07/29/16 at 07:24; Status DC Miconazole Nitrate (Monistat-Derm) 1 lyudmila PRN DAILY PRN TP ITCHING Last administered on 08/09/16 19:22; Start 07/29/16 at 07:30 Albuterol/ Ipratropium (Duoneb) 3 ml PRN Q4HRS PRN NEB SHORTNESS OF BREATH; Start 07/29/16 at 07:30 Carvedilol (Coreg) 6.25 mg Q12HR PO Last administered on 08/10/16 07:52; Start 07/29/16 at 21:00 Prenat Multivit/ [employer]/Iron/Folic Ac (Multivitamin ) 1 tab DAILYWLUN PO Last administered on 08/10/16 11:52; Start 07/29/16 at 12:00 Bupropion HCl (Wellbutrin Xl) 150 mg DAILY PO Last administered on 08/10/16 07 :52; Start 07/30/16 at 09:00 Quetiapine Fumarate (SEROquel) 25 mg QHS PO Last administered on 08/04/16 19: 22; Start 08/02/16 at 21:00; Stop 08/05/16 at 10:04; Status DC Quetiapine Fumarate (SEROquel) 37.5 mg QHS PO Last administered on 08/06/16 19 :22; Start 08/05/16 at 21:00; Stop 08/07/16 at 16:14; Status DC Quetiapine Fumarate (SEROquel) 50 mg QHS PO Last administered on 08/09/16 19: 21; Start 08/07/16 at 21:00 Active Scripts Active Reported Lotrimin Af (Miconazole Nitrate) 90 Gm Powder 1 Lyudmila TP PRN PRN Artificial Tears Eye Drops (Dextran 70/Hypromellose) 15 Ml Drops 2 Drop LEFTEYE PRN Q2HR PRN Triamcinolone Acetonide 15 Gm Cream..g. 1 Lyudmila TP BID Clobetasol Propionate 15 Gm Cream..g. 1 Lyudmila TP BID Hydrocerin Cream (Mineral Oil/Petrolatum,White) 454 Gm Cream..g. 1 Lyudmila TP QHS Vicks Vaporub Ointment (Eucalyptus Oil/Menthol/Camphor) 50 Gm Oint...g. 1 Lyudmila TP PRN PRN Ra Saline Enema (Na Phos,M-B/Na Phos,Di-Ba) 133 Ml Enema 133 Ml RC PRN Q24HRS PRN Proventil Hfa Inhaler (Albuterol Sulfate) 6.7 Gm Hfa.aer.ad 1 Puff IH PRN Q4HRS PRN Alum-Mag Hydroxide-Simeth Liq (Mag Hydrox/Al Hydrox/Simeth) 360 Ml Oral.susp 30 Ml PO PRN Q2HR PRN Milk Of Magnesia (Magnesium Hydroxide) 400 Mg/5 Ml Oral.susp 2,400 Mg PO PRN QHS PRN Fluticasone Propionate Nasal [place] (Fluticasone Propionate) 16 Gm [place].susp 2 [place] NS PRN DAILY PRN Colace (Docusate Sodium) 100 Mg Capsule 100 Mg PO PRN DAILY PRN Acetaminophen 325 Mg Tablet 650 Mg PO PRN Q4HRS PRN Acetaminophen Supp (Acetaminophen) 650 Mg Supp.rect 650 Mg RC PRN Q4HRS PRN Acetaminophen 160 Mg/5 Ml Oral.susp 650 Mg PO PRN Q4HRS PRN Tamsulosin Hcl 0.4 Mg Cap.er.24h 0.4 Mg PO BID Carvedilol 6.25 Mg Tablet 6.25 Mg PO BIDWMEALS Venlafaxine Hcl 25 Mg Tablet 25 Mg PO DAILY Protonix (Pantoprazole Sodium) 40 Mg Tablet.dr 40 Mg PO DAILY Lasix (Furosemide) 20 Mg Tablet 20 Mg PO DAILY SHANNON SIMMONS MD Aug 10, 2016 21:00
[2016-08-10] MEDS: QUEtiapine 50 MG TABLET. PO SCH (22:35)
[2016-08-10] MEDS: MINERAL OIL/PETROLATUM TOPICAL CREAM 113GM JAR. TP SCH (22:36)
--- NOTE | 2016-08-10 22:45 | PN ---
DATE: 08/08/2016 PSYCHIATRIC PROGRESS NOTE This is a late entry of 08/08/2016 covers elements not covered in my initial note. SUBJECTIVE: He has been holding the hands of demented patient, nursing staff redirected and he was accepting of this attempted to kiss her at one point. We will check labs the next morning. REVIEW OF SYSTEMS: No CV, , pulmonary, eye system symptoms on review. MENTAL STATUS EXAM: Oriented reasonably. Speech is coherent, has some latency. Abstraction fair, computation impaired, language function intact, attention span short, mood and affect less labile, less irritable. LABORATORY DATA: Reviewed. 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 Rest diagnoses unchanged from earlier. PLAN: Continue Wellbutrin-XL 150 mg a day, Seroquel 50 mg at bedtime, Zyprexa p.r.n. May transition to a lower level of care starting Saturday of next week. SHANNON SIMMONS MD DR: MERCEDES/maciej JOB#: [id number] / [id number]
--- NOTE | 2016-08-10 22:49 | PN ---
DATE: 08/09/2016 PSYCHIATRIC PROGRESS NOTE This is a late entry of 08/09/2016 covers elements not covered in my initial note. SUBJECTIVE: The patient was staffed at a treatment team meeting morning of 08/09/2016 seen individually evening of 08/09/2016. Appetite 100%, sleeping about 5-6 hours. Reviewed his history, prompting admission from [facility] in [facility]. He was attending groups previously, but not as much in the last day or two. Still holding the hands of demented female patient, but redirects when staff intervene. No clear hallucinations noted. REVIEW OF SYSTEMS: Poor vision. No CV, , Pulmonary system symptoms on review. MENTAL STATUS EXAM: Reasonably oriented. Speech coherent, abstraction fair, computation impaired, language function intact. Mood and affect is improved. LABORATORY DATA: Reviewed. 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 PLAN: Continue Seroquel and Wellbutrin along with Zyprexa p.r.n. [facility]. Adjust further as clinically indicated. SHANNON SIMMONS MD DR: MERCEDES/maciej JOB#: [id number] / [id number]
[2016-08-11 06:29] VITALS: BP 158/77
[2016-08-11] MEDS: TAMSULOSIN 0.4 MG CAP.ER.24H. PO SCH ×2 (08:00→19:25)
[2016-08-11] MEDS: CARVEDILOL 6.25 MG TABLET PO SCH ×2 (08:00→19:25)
[2016-08-11] MEDS: PANTOPRAZOLE 40 MG TABLET. PO SCH (08:00)
[2016-08-11] MEDS: buPROPion XL 150 MG TAB.ER.24H PO SCH (08:01)
[2016-08-11] MEDS: FUROSEMIDE 20 MG TABLET PO SCH (08:01)
[2016-08-11] MEDS: PRENATAL MULTIVITAMIN TABLET. PO SCH (08:02)
[2016-08-11] MEDS: CLOBETASOL 0.05% TP SCH ×2 (08:03→19:27)
[2016-08-11 16:13] VITALS: BP 129/64
[2016-08-11] MEDS: QUEtiapine 50 MG TABLET. PO SCH (19:26)
[2016-08-11] MEDS: MINERAL OIL/PETROLATUM TOPICAL CREAM 113GM JAR. TP SCH (19:27)
--- NOTE | 2016-08-11 21:09 | PDOC ---
Exam Mando Demential Exam: Mando Note: Please also refer to the separate dictated note~for this date of service dictated separately.~Patient seen individually. Discussed the patient with Nursing staff reviewed the chart.~Reviewed interim history and current functioning. Reviewed vital signs,~Labs/ Radiology~and current medications noted below. Continue current treatment with the changes noted in the dictated addendum note Assessment: Vital Signs: Vital Signs Date Time Temp Pulse Resp B/P Pulse Ox O2 Delivery O2 Flow Rate FiO2 08/11/16 19:25 74 129/64 08/11/16 16:13 97.9 16 92 08/11/16 06:29 Room Air 08/06/16 06:11 2.0 I&O Intake and Output 08/11/16 07:00 Intake Total 1200 ml Balance 1200 ml Intake Oral 1200 ml Current Medications: Meds: Current Medications Acetaminophen (Tylenol) 650 mg PRN Q6HRS PRN PO PAIN / TEMP; Start 07/28/16 at 22:45; Stop 07/29/16 at 06:32; Status DC Multi-Ingredient Ointment (Analgesic [place]) 1 lyudmila PRN QID PRN TP MUSCLE PAIN; Start 07/28/16 at 22:45 Al Hydroxide/Mg Hydroxide (Mylanta Plus Xs) 15 ml PRN AFTMEALHC PRN PO DYSPEPSIA; Start 07/28/16 at 22:45; Stop 07/29/16 at 06:32; Status DC Magnesium Hydroxide (Milk Of Magnesia) 2,400 mg PRN QHS PRN PO CONSTIPATION; Start 07/28/16 at 22:45; Stop 07/29/16 at 06:32; Status DC Venlafaxine HCl (Effexor) 25 mg DAILY PO Depression Last administered on 08:31; Start 07/29/16 at 09:00; Stop 07/29/16 at 18:31; Status DC Fluticasone Propionate (Flonase) 2 spray PRN DAILY PRN NS Nasal Congestion Last administered on 08/07/16 06:24; Start 07/28/16 at 22:45 Olanzapine (Zyprexa Zydis) 1.25 mg PRN Q2HR PRN PO Psych; Start 07/28/16 at 22: 45 Acetaminophen (Tylenol) 650 mg PRN Q4HRS PRN PO PAIN / TEMP; Start 07/29/16 at 06:30 Acetaminophen (Tylenol) 650 mg PRN Q4HRS PRN RC PAIN / TEMP; Start 07/29/16 at 06:30 Albuterol Sulfate (Ventolin Hfa) 1 puff PRN Q4HRS PRN IH Dyspnea; Start at 06:30; Stop 07/29/16 at 07:22; Status DC Carvedilol (Coreg) 6.25 mg BIDWMEALS PO Last administered on 07/29/16 08:31; Start 07/29/16 at 08:00; Stop 07/29/16 at 10:49; Status DC Clobetasol Propionate (Temovate) 1 lyudmila BID TP Last administered on 08/11/16 19 :27; Start 07/29/16 at 09:00 Docusate Sodium (Colace) 100 mg PRN DAILY PRN PO CONSTIPATION Last administered on 08/10/16 07:52; Start 07/29/16 at 06:30 Furosemide (Lasix) 20 mg DAILY PO Last administered on 08/11/16 08:01; Start 07/29/16 at 09:00 Magnesium Hydroxide (Milk Of Magnesia) 2,400 mg PRN QHS PRN PO CONSTIPATION; Start 07/29/16 at 06:30 Miconazole Nitrate (Desenex) 1 lyudmila PRN DAILY PRN TP ITCHING; Start 07/29/16 at 06:30; Stop 07/29/16 at 07:20; Status DC Multi-Ingred Cream/Lotion/Oil/ Oint (Hydrocerin) 1 lyudmila QHS TP Last administered on 08/11/16 19:27; Start 07/29/16 at 21:00 Pantoprazole Sodium (Protonix) 40 mg DAILYAC PO Last administered on 08/11/16 08:00; Start 07/29/16 at 07:30 Tamsulosin HCl (Flomax) 0.4 mg BID PO Last administered on 08/11/16 19:25; Start 07/29/16 at 09:00 Non-Formulary Medication 650 mg PRN Q4HRS PRN PO PAIN / TEMP; Start 07/29/16 at 06:30; Status UNV Artificial Tears (Artificial Tears) 2 drop PRN Q2HR PRN OU Artificial Eye Dryness; Start 07/29/16 at 06:30 Non-Formulary Medication 1 lyudmila PRN PRN TP CONGESTION; Start 07/29/16 at 06:30; Stop 07/29/16 at 07:24; Status DC Miconazole Nitrate (Monistat-Derm) 1 lyudmila PRN DAILY PRN TP ITCHING Last administered on 08/09/16 19:22; Start 07/29/16 at 07:30 Albuterol/ Ipratropium (Duoneb) 3 ml PRN Q4HRS PRN NEB SHORTNESS OF BREATH; Start 07/29/16 at 07:30 Carvedilol (Coreg) 6.25 mg Q12HR PO Last administered on 08/11/16 19:25; Start 07/29/16 at 21:00 Prenat Multivit/ [place]/Iron/Folic Ac (Multivitamin ) 1 tab DAILYWLUN PO Last administered on 08/11/16 08:02; Start 07/29/16 at 12:00 Bupropion HCl (Wellbutrin Xl) 150 mg DAILY PO Last administered on 08/11/16 08 :01; Start 07/30/16 at 09:00 Quetiapine Fumarate (SEROquel) 25 mg QHS PO Last administered on 08/04/16 19: 22; Start 08/02/16 at 21:00; Stop 08/05/16 at 10:04; Status DC Quetiapine Fumarate (SEROquel) 37.5 mg QHS PO Last administered on 08/06/16 19 :22; Start 08/05/16 at 21:00; Stop 08/07/16 at 16:14; Status DC Quetiapine Fumarate (SEROquel) 50 mg QHS PO Last administered on 08/11/16 19: 26; Start 08/07/16 at 21:00 Active Scripts Active Reported Lotrimin Af (Miconazole Nitrate) 90 Gm Powder 1 Lyudmila TP PRN PRN Artificial Tears Eye Drops (Dextran 70/Hypromellose) 15 Ml Drops 2 Drop LEFTEYE PRN Q2HR PRN Triamcinolone Acetonide 15 Gm Cream..g. 1 Lyudmila TP BID Clobetasol Propionate 15 Gm Cream..g. 1 Lyudmila TP BID Hydrocerin Cream (Mineral Oil/Petrolatum,White) 454 Gm Cream..g. 1 Lyudmila TP QHS Vicks Vaporub Ointment (Eucalyptus Oil/Menthol/Camphor) 50 Gm Oint...g. 1 Lyudmila TP PRN PRN Ra Saline Enema (Na Phos,M-B/Na Phos,Di-Ba) 133 Ml Enema 133 Ml RC PRN Q24HRS PRN Proventil Hfa Inhaler (Albuterol Sulfate) 6.7 Gm Hfa.aer.ad 1 Puff IH PRN Q4HRS PRN Alum-Mag Hydroxide-Simeth Liq (Mag Hydrox/Al Hydrox/Simeth) 360 Ml Oral.susp 30 Ml PO PRN Q2HR PRN Milk Of Magnesia (Magnesium Hydroxide) 400 Mg/5 Ml Oral.susp 2,400 Mg PO PRN QHS PRN Fluticasone Propionate Nasal [place] (Fluticasone Propionate) 16 Gm [place].susp 2 [place] NS PRN DAILY PRN Colace (Docusate Sodium) 100 Mg Capsule 100 Mg PO PRN DAILY PRN Acetaminophen 325 Mg Tablet 650 Mg PO PRN Q4HRS PRN Acetaminophen Supp (Acetaminophen) 650 Mg Supp.rect 650 Mg RC PRN Q4HRS PRN Acetaminophen 160 Mg/5 Ml Oral.susp 650 Mg PO PRN Q4HRS PRN Tamsulosin Hcl 0.4 Mg Cap.er.24h 0.4 Mg PO BID Carvedilol 6.25 Mg Tablet 6.25 Mg PO BIDWMEALS Venlafaxine Hcl 25 Mg Tablet 25 Mg PO DAILY Protonix (Pantoprazole Sodium) 40 Mg Tablet.dr 40 Mg PO DAILY Lasix (Furosemide) 20 Mg Tablet 20 Mg PO DAILY SHANNON SIMMONS MD Aug 11, 2016 21:09
[2016-08-12 07:01] VITALS: BP 155/69
[2016-08-12] MEDS: PANTOPRAZOLE 40 MG TABLET. PO SCH (08:09)
[2016-08-12] MEDS: PRENATAL MULTIVITAMIN TABLET. PO SCH (08:12)
[2016-08-12] MEDS: CLOBETASOL 0.05% TP SCH ×2 (08:12→21:35)
[2016-08-12] MEDS: buPROPion XL 150 MG TAB.ER.24H PO SCH (08:12)
[2016-08-12] MEDS: TAMSULOSIN 0.4 MG CAP.ER.24H. PO SCH ×2 (08:12→21:30)
[2016-08-12] MEDS: CARVEDILOL 6.25 MG TABLET PO SCH ×2 (08:20→21:31)
[2016-08-12] MEDS: FUROSEMIDE 20 MG TABLET PO SCH (08:20)
[2016-08-12] MEDS ORDERED: CHOLECALCIFEROL (VITAMIN D3) 1,000 UNIT TABLET PO SCH (17:00)
[2016-08-12 17:05] VITALS: BP 142/83
[2016-08-12] MEDS ORDERED: MICO10PO TOP (17:58)
[2016-08-12] MEDS ORDERED: DEXT1DRO7 OP (18:00)
[2016-08-12] MEDS ORDERED: PREN1TAB26 PO (18:01)
[2016-08-12] MEDS ORDERED: QUET50TA5 PO (18:03)
[2016-08-12] MEDS ORDERED: OLAN5TAB5 PO (18:03)
[2016-08-12] MEDS ORDERED: BUPR150T15 PO (18:04)
--- NOTE | 2016-08-12 18:09 | PN ---
DATE: 08/10/2016 PSYCHIATRIC PROGRESS NOTE This is late entry of 08/10/2016, covers elements not covered in my initial note. SUBJECTIVE: Overall, the patient remains somewhat withdrawn, but spends time with another demented female patient on the unit. He is cooperative, redirectable, holds hands with this other patient, but redirects. REVIEW OF SYSTEMS: No CV, , pulmonary, eye, ENT system symptoms on review. Gait unsteady with a walker. MENTAL STATUS EXAMINATION: Reasonably oriented. Speech coherent. Has some latency. Abstraction fair, computation impaired, language function intact. Mood and affect showing improvement, less depressed, less obsessive. LABORATORY DATA: Reviewed. IMPRESSION: Major depressive disorder, recurrent, in partial remission; anxiety disorder, unspecified; cognitive disorder, unspecified. PLAN: Continue psychotropics mentioned in my initial note. Adjust further as clinically indicated. MAN Kedar SIMMONS MD DR: MERCEDES/maciej JOB#: [id number] / [id number]
--- NOTE | 2016-08-12 18:14 | PN ---
DATE: 08/11/2016 PSYCHIATRIC PROGRESS NOTE This note covers elements not covered in my initial note. SUBJECTIVE: Per nursing report, the patient is doing reasonably well, little anxious, at times irritable, but very redirectable, pleasant, cooperative, interactive with others. REVIEW OF SYSTEMS: Ambulation impaired with a walker. No CV, , pulmonary, eye system symptoms on review. MENTAL STATUS EXAMINATION: Reasonably oriented. Speech coherent, has some latency. Abstraction fair, computation impaired, language function intact. Mood and affect showing improvement. LABORATORY DATA: Reviewed. IMPRESSION: Unchanged from initial note. PLAN: Continue Wellbutrin XL 150 mg a day, Zyprexa Zydis p.r.n., Seroquel 50 mg at bedtime. Adjust further as clinically indicated. MAN Kedar SIMMONS MD DR: MERCEDES/maciej JOB#: [id number] / [id number]
--- NOTE | 2016-08-12 21:04 | PDOC ---
Exam Mando Demential Exam: Mando Note: Please also refer to the separate dictated note~for this date of service dictated separately.~Patient seen individually. Discussed the patient with Nursing staff reviewed the chart.~Reviewed interim history and current functioning. Reviewed vital signs,~Labs/ Radiology~and current medications noted below. Continue current treatment with the changes noted in the dictated addendum note Assessment: Vital Signs: Vital Signs Date Time Temp Pulse Resp B/P Pulse Ox O2 Delivery O2 Flow Rate FiO2 08/12/16 17:05 98.0 96 16 142/83 95 08/11/16 06:29 Room Air I&O Intake and Output 08/12/16 07:00 Intake Total 1200 ml Balance 1200 ml Intake Oral 1200 ml Current Medications: Meds: Current Medications Acetaminophen (Tylenol) 650 mg PRN Q6HRS PRN PO PAIN / TEMP; Start 07/28/16 at 22:45; Stop 07/29/16 at 06:32; Status DC Multi-Ingredient Ointment (Analgesic [place]) 1 lyudmila PRN QID PRN TP MUSCLE PAIN; Start 07/28/16 at 22:45 Al Hydroxide/Mg Hydroxide (Mylanta Plus Xs) 15 ml PRN AFTMEALHC PRN PO DYSPEPSIA; Start 07/28/16 at 22:45; Stop 07/29/16 at 06:32; Status DC Magnesium Hydroxide (Milk Of Magnesia) 2,400 mg PRN QHS PRN PO CONSTIPATION; Start 07/28/16 at 22:45; Stop 07/29/16 at 06:32; Status DC Venlafaxine HCl (Effexor) 25 mg DAILY PO Depression Last administered on 08:31; Start 07/29/16 at 09:00; Stop 07/29/16 at 18:31; Status DC Fluticasone Propionate (Flonase) 2 spray PRN DAILY PRN NS Nasal Congestion Last administered on 08/07/16 06:24; Start 07/28/16 at 22:45 Olanzapine (Zyprexa Zydis) 1.25 mg PRN Q2HR PRN PO Psych; Start 07/28/16 at 22: 45 Acetaminophen (Tylenol) 650 mg PRN Q4HRS PRN PO PAIN / TEMP; Start 07/29/16 at 06:30 Acetaminophen (Tylenol) 650 mg PRN Q4HRS PRN RC PAIN / TEMP; Start 07/29/16 at 06:30 Albuterol Sulfate (Ventolin Hfa) 1 puff PRN Q4HRS PRN IH Dyspnea; Start at 06:30; Stop 07/29/16 at 07:22; Status DC Carvedilol (Coreg) 6.25 mg BIDWMEALS PO Last administered on 07/29/16 08:31; Start 07/29/16 at 08:00; Stop 07/29/16 at 10:49; Status DC Clobetasol Propionate (Temovate) 1 lyudmila BID TP Last administered on 08/12/16 08 :12; Start 07/29/16 at 09:00 Docusate Sodium (Colace) 100 mg PRN DAILY PRN PO CONSTIPATION Last administered on 08/10/16 07:52; Start 07/29/16 at 06:30 Furosemide (Lasix) 20 mg DAILY PO Last administered on 08/12/16 08:20; Start 07/29/16 at 09:00 Magnesium Hydroxide (Milk Of Magnesia) 2,400 mg PRN QHS PRN PO CONSTIPATION; Start 07/29/16 at 06:30 Miconazole Nitrate (Desenex) 1 lyudmila PRN DAILY PRN TP ITCHING; Start 07/29/16 at 06:30; Stop 07/29/16 at 07:20; Status DC Multi-Ingred Cream/Lotion/Oil/ Oint (Hydrocerin) 1 lyudmila QHS TP Last administered on 08/11/16 19:27; Start 07/29/16 at 21:00 Pantoprazole Sodium (Protonix) 40 mg DAILYAC PO Last administered on 08/12/16 08:09; Start 07/29/16 at 07:30 Tamsulosin HCl (Flomax) 0.4 mg BID PO Last administered on 08/12/16 08:12; Start 07/29/16 at 09:00 Non-Formulary Medication 650 mg PRN Q4HRS PRN PO PAIN / TEMP; Start 07/29/16 at 06:30; Status UNV Artificial Tears (Artificial Tears) 2 drop PRN Q2HR PRN OU Artificial Eye Dryness; Start 07/29/16 at 06:30 Non-Formulary Medication 1 lyudmila PRN PRN TP CONGESTION; Start 07/29/16 at 06:30; Stop 07/29/16 at 07:24; Status DC Miconazole Nitrate (Monistat-Derm) 1 lyudmila PRN DAILY PRN TP ITCHING Last administered on 08/09/16 19:22; Start 07/29/16 at 07:30 Albuterol/ Ipratropium (Duoneb) 3 ml PRN Q4HRS PRN NEB SHORTNESS OF BREATH; Start 07/29/16 at 07:30 Carvedilol (Coreg) 6.25 mg Q12HR PO Last administered on 08/12/16 08:20; Start 07/29/16 at 21:00 Prenat Multivit/ [place]/Iron/Folic Ac (Multivitamin ) 1 tab DAILYWLUN PO Last administered on 08/12/16 08:12; Start 07/29/16 at 12:00 Bupropion HCl (Wellbutrin Xl) 150 mg DAILY PO Last administered on 08/12/16 08 :12; Start 07/30/16 at 09:00 Quetiapine Fumarate (SEROquel) 25 mg QHS PO Last administered on 08/04/16 19: 22; Start 08/02/16 at 21:00; Stop 08/05/16 at 10:04; Status DC Quetiapine Fumarate (SEROquel) 37.5 mg QHS PO Last administered on 08/06/16 19 :22; Start 08/05/16 at 21:00; Stop 08/07/16 at 16:14; Status DC Quetiapine Fumarate (SEROquel) 50 mg QHS PO Last administered on 08/11/16 19: 26; Start 08/07/16 at 21:00 Vitamin D (Vitamin D3) 2,000 unit DAILYWSUP PO Last administered on 08/12/16 17:09; Start 08/12/16 at 17:00 Active Scripts Active Reported Wellbutrin Xl (Bupropion Hcl) 150 Mg Tab.er.24h 1 Tab PO DAILYWBKFT Seroquel (Quetiapine Fumarate) 50 Mg Tablet 1 Tab PO QHS Zyprexa Zydis (Olanzapine) 5 Mg Tab.rapdis 1.25 Mg PO PRN Q2HR PRN Formula Tablet ( Vits #90/Iron Fum/Fa) 1 Each Tablet 1 Each PO DAILYWLUN Lotrimin Af (Miconazole Nitrate) 90 Gm Powder 1 Lyudmila TP PRN PRN Artificial Tears Eye Drops (Dextran 70/Hypromellose) 15 Ml Drops 2 Drop LEFTEYE PRN Q2HR PRN Triamcinolone Acetonide 15 Gm Cream..g. 1 Lyudmila TP BID Clobetasol Propionate 15 Gm Cream..g. 1 Lyudmila TP BID Hydrocerin Cream (Mineral Oil/Petrolatum,White) 454 Gm Cream..g. 1 Lyudmila TP QHS Vicks Vaporub Ointment (Eucalyptus Oil/Menthol/Camphor) 50 Gm Oint...g. 1 Lyudmila TP PRN PRN Ra Saline Enema (Na Phos,M-B/Na Phos,Di-Ba) 133 Ml Enema 133 Ml RC PRN Q24HRS PRN Proventil Hfa Inhaler (Albuterol Sulfate) 6.7 Gm Hfa.aer.ad 1 Puff IH PRN Q4HRS PRN Alum-Mag Hydroxide-Simeth Liq (Mag Hydrox/Al Hydrox/Simeth) 360 Ml Oral.susp 30 Ml PO PRN Q2HR PRN Milk Of Magnesia (Magnesium Hydroxide) 400 Mg/5 Ml Oral.susp 2,400 Mg PO PRN QHS PRN Fluticasone Propionate Nasal [place] (Fluticasone Propionate) 16 Gm [place].susp 2 [place] NS PRN DAILY PRN Colace (Docusate Sodium) 100 Mg Capsule 100 Mg PO PRN DAILY PRN Acetaminophen 325 Mg Tablet 650 Mg PO PRN Q4HRS PRN Acetaminophen Supp (Acetaminophen) 650 Mg Supp.rect 650 Mg RC PRN Q4HRS PRN Acetaminophen 160 Mg/5 Ml Oral.susp 650 Mg PO PRN Q4HRS PRN Tamsulosin Hcl 0.4 Mg Cap.er.24h 0.4 Mg PO BID Carvedilol 6.25 Mg Tablet 6.25 Mg PO BIDWMEALS Venlafaxine Hcl 25 Mg Tablet 25 Mg PO DAILY Protonix (Pantoprazole Sodium) 40 Mg Tablet.dr 40 Mg PO DAILY Lasix (Furosemide) 20 Mg Tablet 20 Mg PO DAILY SHANNON SIMMONS MD Aug 12, 2016 21:03
[2016-08-12] MEDS: QUEtiapine 50 MG TABLET. PO SCH (21:30)
[2016-08-12] MEDS: MINERAL OIL/PETROLATUM TOPICAL CREAM 113GM JAR. TP SCH (21:35)
[2016-08-13 06:55] VITALS: BP 148/81
[2016-08-13] MEDS: PANTOPRAZOLE 40 MG TABLET. PO SCH (08:02)
[2016-08-13 08:03] VITALS: BP 148/81
[2016-08-13] MEDS: CARVEDILOL 6.25 MG TABLET PO SCH (08:03)
[2016-08-13] MEDS: TAMSULOSIN 0.4 MG CAP.ER.24H. PO SCH (08:03)
[2016-08-13] MEDS: FUROSEMIDE 20 MG TABLET PO SCH (08:03)
[2016-08-13] MEDS: buPROPion XL 150 MG TAB.ER.24H PO SCH (08:03)
[2016-08-13] MEDS: CLOBETASOL 0.05% TP SCH (08:03)
--- NOTE | 2016-08-13 15:53 | PN ---
DATE: 08/12/2016 PSYCHIATRIC PROGRESS NOTE This is late entry of 08/12/2016, covers elements not covered in my initial note. SUBJECTIVE: Per nursing report, the patient has been fairly cooperative on the unit, gets a little anxious at times, has been holding hands with a demented female patient on the unit, but redirects if staff intervene. 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 No CV, , pulmonary, ENT system symptoms on review. MENTAL STATUS EXAMINATION: Reasonably oriented. Speech coherent, abstraction fair, computation impaired, language function intact. Mood and affect appears improved. LABORATORY DATA: Reviewed. IMPRESSION: Unchanged from my initial note. PLAN: Continue current psychotropics, transition back to long-term this week. MAN Kedar SIMMONS MD DR: MERCEDES/maciej JOB#: [id number] / [id number]
--- NOTE | 2016-08-14 22:27 | DS ---
DATE OF DISCHARGE: 08/13/2016 DISCHARGE SUMMARY/PSYCHIATRIC PROGRESS NOTE This is a late entry 08/13/2016 covers the elements not covered in my initial note. REASON FOR ADMISSION: Please refer to the admission history for details. Briefly, the patient is an 85-year-old male referred to us from the [facility] where he presented from the nursing facility on account of increased sexually inappropriate behaviors, agitation, aggression, unmanageable dangerous behaviors despite being reasonably oriented. He is wanting to leave, return home with a sexual aggression was problematic. SIGNIFICANT FINDINGS AND CLINICAL COURSE: Following admission, the patient was seen daily individually by myself, followed medically per Dr. Hercules/Dr Whitmore. The patient remained somewhat withdrawn, depressed. Adjustments were made in his psychotropics and he seemed to respond to a combination of Wellbutrin-XL 150 mg a day, Seroquel 50 mg at bedtime, Zyprexa p.r.n. Gradually mood improved. He was quite redirectable. He would hold hands with another patient on the unit who was demented, but easily redirected and this other patient's family had no objection to this. Prior to discharge on 08/13/2016 Temperature 97.4, BP 158/78, pulse 66, respirations 16. REVIEW OF SYSTEMS: No CV, , pulmonary, eye, ENT system symptoms on review. MENTAL STATUS EXAM: Oriented to himself and situation. Speech has some latency, coherent. Abstraction fair, computation impaired, language function intact. Mood and affect were more stable at discharge. LABORATORY DATA: Reviewed. FINAL DIAGNOSES: Major depressive disorder, recurrent, in partial remission; cognitive disorder, unspecified; anxiety disorder, unspecified; impulse control disorder, unspecified. Rest diagnosis III: Unchanged from admission. DISCHARGE MEDICATIONS: Please refer to the [facility]. [facility]. SHANNON SIMMONS MD DR: MERCEDES/maciej JOB#: [id number] / [id number]
== END 2016-08-13 09:00 | DRG 885 ==
LOC: GEROPSY 21:24
PROVIDERS: ADMIT Psychiatry & Neurology Psychiatry; ATTEND Psychiatry & Neurology Psychiatry
DX: F33.41 Major depressive disorder, recurrent, in partial remission (principal); D66 Hereditary factor VIII deficiency; D68.51 Activated protein C resistance; I13.0 Hypertensive heart and chronic kidney disease with heart failure and stage 1 through stage 4 chronic kidney disease, or unspecified chronic kidney disease; D69.6 Thrombocytopenia, unspecified; E61.1 Iron deficiency; F03.90 Unspecified dementia, unspecified severity, without behavioral disturbance, psychotic disturbance, mood disturbance, and anxiety; F41.9 Anxiety disorder, unspecified; F43.20 Adjustment disorder, unspecified; F63.9 Impulse disorder, unspecified; H54.0 Blindness, both eyes; G47.00 Insomnia, unspecified; F33.3 Major depressive disorder, recurrent, severe with psychotic symptoms; N18.9 Chronic kidney disease, unspecified; F09 Unspecified mental disorder due to known physiological condition; I50.9 Heart failure, unspecified; I25.10 Atherosclerotic heart disease of native coronary artery without angina pectoris; Z66 Do not resuscitate; Z79.899 Other long term (current) drug therapy; Z86.711 Personal history of pulmonary embolism; Z86.718 Personal history of other venous thrombosis and embolism; Z87.891 Personal history of nicotine dependence; Z91.81 History of falling; Z97.0 Presence of artificial eye
CPT/HCPCS: 36415; 80053; 80061; 81001; 82306; 82607; 83036; 83540; 83550; 83735; 84436; 84443; 84480; 85027; 86592; 86593; 94640